=== PATIENT | female | born 1960 | race Caucasian/White ===

== ENCOUNTER 2016-11-21 15:41 | Emergency (ER) | payer MEDICARE, MEDICAID ==
[2016-11-21 15:52] VITALS: BP 109/68
--- NOTE | 2016-11-21 16:06 | EDM.PDOC ---
ED HPI GENERAL MEDICAL PROBLEM - General Chief Complaint: Headache Stated Complaint: BACK INJURY Time Seen by Provider: 11/21/16 16:06 Source of Information: Reports: Patient History Limitations: Reports: No Limitations - History of Present Illness INITIAL COMMENTS - FREE TEXT/NARRATIVE: Patient is a 56-year-old female with a history of narcotic use secondary to chronic back pain. Patient states today while walking outside of the school she tripped and fell hitting the left side of her head. Unknown if she was knocked out. She does complain of left-sided facial discomfort, midline cervical spine pain, and right-sided rib discomfort. There is a small abrasion to the left cheek and left eyebrow. Patient states she has a bad headache after the fall. She took a hydrocodone 1 and then 1 hour later took a hydromorphone 4 mg. Headache persists. She feels drowsy. She denies any vision changes, numbness or tingling, extremity discomfort, chest pain, shortness of breath, abdominal pain , or any additional complaints. Patient did walk into the ER on her own accord. Headache Pain Score (Numeric/FACES): 8 - Related Data Allergies Allergy/AdvReac Type Severity Reaction Status Date / Time chlorpromazine HCl Allergy Anxiety Verified 10/30/13 19:53 CDT [From Thorazine] codeine Allergy Hives Verified 10/30/13 19:53 CDT haloperidol [From Haldol] Allergy Anxiety Verified 10/30/13 19:53 CDT haloperidol lactate Allergy Anxiety Verified 10/30/13 19:53 CDT [From Haldol] morphine Allergy Itching Verified 10/30/13 19:53 CDT nalbuphine HCl [From Nubain] Allergy Hives Verified 10/30/13 19:53 CDT Home Meds: Home Meds Amitriptyline [Elavil] 2 tab PO DAILY 10/30/13 [History] Cyanocobalamin (Vitamin B-12) [Cyanocobalamin Injection] 1,000 mg INJECT ASDIRECTED 10/30/13 [History] Folic Acid/Multivit-Min/Lutein [Multi-Vitamin Gummies] 1 tab PO DAILY 10/30/13 [ History] HYDROmorphone [Dilaudid] 4 mg PO Q4H PRN 10/30/13 [History] Hydrocodone/Acetaminophen [Hydrocodon-Acetaminophn 10-325] 1 tab PO Q4H [History] Iron 1 tab PO DAILY 10/30/13 [History] Pantoprazole [Protonix] 40 mg PO DAILY 10/30/13 [History] Pregabalin [Lyrica] 150 mg PO BID 10/30/13 [History] Promethazine [Phenergan] 25 mg PO Q4H PRN 10/30/13 [History] SUMAtriptan Succinate [Imitrex] 1 tab PO ASDIRECTED PRN 10/30/13 [History] Past Medical History Respiratory History: Reports: Bronchitis, Recurrent Psychiatric History: Reports: Anxiety, Dementia - Past Surgical History GI Surgical History: Reports: Bariatric Procedure, Cholecystectomy Other GI Surgeries/Procedures: ulcers Female Surgical History: Reports: Hysterectomy Social & Family History - Tobacco Use Smoking Status *Q: Current Every Day Smoker Years of Tobacco use: 38 Packs/Tins Daily: 0.5 - Caffeine Use Caffeine Use: Reports: Soda - Alcohol Use Days Per Week of Alcohol Use: 0 - Recreational Drug Use Recreational Drug Use: No ED ROS GENERAL - Review of Systems Review Of Systems: See Below Constitutional: Reports: No Symptoms HEENT: Denies: Ear Pain, Eye Pain Respiratory: Reports: Pleuritic Chest Pain (right lateral/posterior chest). Denies: Shortness of Breath, Cough, Sputum Cardiovascular: Reports: Chest Pain. Denies: Dyspnea on Exertion, Lightheadedness, Palpitations, PND, Syncope GI/Abdominal: Denies: Abdominal Pain, Constipation, Diarrhea, Nausea, Vomiting Musculoskeletal: Reports: Neck Pain, Back Pain (right thoracic) Skin: Reports: Other (superficial abrasions to the left forehead, eyebrow, and cheek) Neurological: Reports: Headache. Denies: Dizziness, Numbness, Tingling, Difficulty Walking, Weakness - Physical Exam Exam: See Below Exam Limited By: Intoxication (Under the influence of narcotic medications) General Appearance: Alert, WD/WN, Lethargic Eye Exam: Bilateral Eye: EOMI, PERRL Ears: Normal External Exam, Hearing Grossly Normal Nose: Normal Inspection, Normal Mucosa, No Blood Throat/Mouth: Normal Inspection, Normal Lips, Normal Teeth, Normal Voice, No Airway Compromise Neck: Normal Inspection, Supple, Limited Range of Motion, Tender Midline Respiratory/Chest: No Respiratory Distress, Lungs Clear, Normal Breath Sounds, No Accessory Muscle Use, Chest Non-Tender Cardiovascular: Normal Peripheral Pulses, Regular Rate, Rhythm, No Murmur GI/Abdominal: Normal Bowel Sounds, Soft, Non-Tender, No Organomegaly, No Distention Neuro Exam (Abbreviated): Alert, Oriented, CN II-XII Intact, No Motor/Sensory Deficits, Slow to Respond, Other (Cerebellar function intact: Finger-nose, rapid alternating movements, [id number]. Equal sorority mother bilaterally. No strength discrepancies to the upper and lower extremity's. No facial droop, tongue deviation noted.) Back Exam: Normal Inspection, Full Range of Motion, Other (Pain located to the right lateral upper back with radiation along the lateral aspect of the ribs.). No: Paraspinal Tenderness, Vertebral Tenderness Extremities: Normal Inspection, Normal Range of Motion, Non-Tender, No Pedal Edema, Normal Capillary Refill Psychiatric: Normal Affect, Normal Mood Skin Exam: Warm, Dry, Intact, Normal Color Course - Vital Signs Last Recorded V/S: Last Vital Signs Temp 98.1 F 11/21/16 15:51 Pulse 63 11/21/16 15:51 Resp 20 11/21/16 15:51 BP 109/68 11/21/16 15:51 Pulse Ox 96 11/21/16 15:51 - Re-Assessments/Exams Free Text/Narrative Re-Assessment/Exam: Patient is under the influence of narcotic pain medications. She is unaware if she lost consciousness with the fall. She complains of left-sided head pain, midline cervical pain, and also right posterior and lateral rib discomfort. Will obtain a CT of the head without contrast, cervical spine without contrast, and rib x-ray with chest right side. We'll trend his basic labs to evaluate for any abnormalities including: CBC, chem 14, urine drug tox, EtOH, PTT/INR, PTT, and UA. 11/21/16 17:02 per nursing staff patient found out her mother is in the hospital and [place] and eats ago. No results of radiology studies present. No blood work obtained. Patient signed out AMA. No acute findings noted on head, cervical, and maxilofacial CT. CXR with rib series did not reveal bony abnormalities as well. Departure - Departure Time of Disposition: 16:51 Disposition: Against Medical Advice 07 Condition: Good Clinical Impression: Abrasion, Neck pain, LOC (loss of consciousness) Fall Qualifiers: Encounter type: initial encounter Qualified Code(s): W19.XXXA - Unspecified fall, initial encounter Contusion Qualifiers: Encounter type: initial encounter Contusion area: head Contusion of head detail : other part of head Qualified Code(s): S00.83XA - Contusion of other part of head, initial encounter - Discharge Information Forms: ED Department Discharge
--- NOTE | 2016-11-21 16:58 | CT ---
CT facial bones Technique: Multiple axial sections through the facial bones were obtained. Reconstructed coronal and sagittal images were reviewed. Findings: Retention cyst is noted within the right maxillary sinus measuring approximately 1.6 cm. Moderate amount of mucosal thickening is noted within the left maxillary sinus with possible air-fluid level. Mild mucosal thickening is seen within a portion of the left frontal and anterior left ethmoid sinuses. Right and left globes are symmetric. I do not appreciate a definite acute fracture. There is some joint space narrowing compatible with degenerative change within the temporomandibular joints on both sides. Impression: 1. No facial bone fracture is identified. 2. Sinus disease which is likely pre-existing and could represent acute on chronic sinusitis given the air-fluid level within the left maxillary sinus. Please correlate with the patient's symptoms. 3. Degenerative change within both temporomandibular joints. Diagnostic code #3
--- NOTE | 2016-11-21 17:00 | CT ---
Head CT Technique: Multiple axial sections through the brain were obtained. Intravenous contrast was not utilized. Comparison: No previous intracranial imaging. Findings: Slight soft tissue swelling is noted within the left posterior parietal scalp. Ventricles along with basal cisterns and sulci over the convexities are within normal limits for the patient's age. No abnormal parenchymal densities are seen. No evidence of intracranial hemorrhage. No midline shift or mass effect is seen. Bone window settings shows no acute calvarial abnormality. Sinus disease is noted as described on facial bone exam. Impression: 1. Sinus disease as described on facial bone exam. 2. No acute intracranial abnormality is appreciated. 3. Very slight soft tissue swelling noted within the posterior left parietal scalp. Diagnostic code #2
--- NOTE | 2016-11-21 17:02 | CT ---
CT cervical spine Technique: Multiple axial sections were obtained from above C1 inferiorly to the top of T3. Reconstructed sagittal and coronal images were reviewed. Comparison: No previous cervical spine imaging. Findings: Mastoid sinuses and middle ear cavities are clear. Posterior skull base is intact. Vertebral bodies and posterior arches are intact with no fracture being seen. No bony central or bony neural foraminal stenosis is seen. No abnormal subluxation is seen on the reconstructed sagittal images. Impression: 1. No abnormality is identified on CT study of the cervical spine. Diagnostic code #1
--- NOTE | 2016-11-22 07:17 | CR ---
Chest and right ribs: Frontal view of the chest was obtained as well as 3 views of the right ribs. Comparison: No previous chest or rib exam. Heart size and mediastinum are within normal limits. Left-sided infusion port is seen. Lungs are clear with no acute infiltrates. Surgical clips are seen within the upper abdomen. No discrete right-sided rib abnormality is appreciated. Impression: 1. No discrete right sided rib abnormality is appreciated. Nondisplaced fracture could be missed. 2. Nothing acute is seen on accompanying frontal chest x-ray. Diagnostic code #2
== END 2016-11-21 16:45 | disposition left against medical advice (07) ==
LOC: SUPCPDRO 15:41 → JD.ED 15:41
DX: S06.9X9A Unspecified intracranial injury with loss of consciousness of unspecified duration, initial encounter (principal); S00.83XA Contusion of other part of head, initial encounter; S10.91XA Abrasion of unspecified part of neck, initial encounter; F03.90 Unspecified dementia, unspecified severity, without behavioral disturbance, psychotic disturbance, mood disturbance, and anxiety; F41.9 Anxiety disorder, unspecified; F17.210 Nicotine dependence, cigarettes, uncomplicated; Z88.5 Allergy status to narcotic agent; Z88.8 Allergy status to other drugs, medicaments and biological substances; Z79.899 Other long term (current) drug therapy; Z98.84 Bariatric surgery status; Z90.49 Acquired absence of other specified parts of digestive tract; Z90.710 Acquired absence of both cervix and uterus; W01.0XXA Fall on same level from slipping, tripping and stumbling without subsequent striking against object, initial encounter
CPT/HCPCS: 70450; 70450-26; 70486; 70486-26; 71101-26-RT; 71101-RT; 72125; 72125-26; 99284; 99284-25

== ENCOUNTER 2017-05-14 18:20 | Emergency (ER) | payer MEDICARE, MEDICAID ==
[2017-05-14] MEDS ORDERED: Sodium Chloride 0.9% 10 ML Syringe FLUSH PRN (18:46)
[2017-05-14] MEDS ORDERED: HYDROmorphone 0.5 MG/0.5 ML SYRINGE IVPUSH ONE ×2 (18:49→20:42)
[2017-05-14] MEDS ORDERED: Sodium Chloride 0.9% 1,000 ML IV ONE (18:49)
[2017-05-14] MEDS ORDERED: Albuterol 0.083% 2.5 MG/3 ML Neb Soln NEB ONE (18:51)
[2017-05-14] MEDS ORDERED: Ondansetron 4 MG/2 ML SDV IVPUSH ONE (19:00)
--- NOTE | 2017-05-14 19:03 | EDM.PDOC ---
ED HPI GENERAL MEDICAL PROBLEM - General Chief Complaint: Chest Pain Stated Complaint: VOMITING,COUGHING,CHEST PAIN Time Seen by Provider: 05/14/17 18:37 Source of Information: Reports: Patient History Limitations: Reports: No Limitations - History of Present Illness INITIAL COMMENTS - FREE TEXT/NARRATIVE: Patient is a 56-year-old female who presents to the ED complaining of shortness of breath, cough, fever like symptoms, sinus congestion, runny nose, and periumbilical abdominal pain. Patient states symptoms started approximately 4 days ago and have progressively gotten worse over the course the day. She's been coughing up copious amounts of sputum. Has a difficult time sleeping at night secondary to the cough. In addition she has chronic abdominal discomfort and is on pain medications as well as GERD medications. She states as of recent she is developing some increasing pain to her abdomen. She is nauseated with 2 episodes of emesis prior to arrival. She has a history of small bowel obstructions. There is no documented fever although she's felt warm to touch. She has generalized body aches and admits she did not receive the flu vaccination since she gets sick from it. She is a heavy smoker. In addition complains of some mild chest discomfort with coughing and taking a deep breath. She has no history of DVT or PE. Denies any hemoptysis. Pain is reproducible with palpation. Patient denies being recently hospitalized or on any antibiotic within the last 90 days. Chest Pain Score (Numeric/FACES): 8 - Related Data Allergies Allergy/AdvReac Type Severity Reaction Status Date / Time chlorpromazine HCl Allergy Anxiety Verified 05/14/17 18:31 [From Thorazine] codeine Allergy Hives Verified 05/14/17 18:31 haloperidol [From Haldol] Allergy Anxiety Verified 05/14/17 18:31 haloperidol lactate Allergy Anxiety Verified 05/14/17 18:31 [From Haldol] morphine Allergy Itching Verified 05/14/17 18:31 nalbuphine HCl [From Nubain] Allergy Hives Verified 05/14/17 18:31 Home Meds: Home Meds Amitriptyline [Elavil] 2 tab PO DAILY 10/30/13 [History] Cyanocobalamin (Vitamin B-12) [Cyanocobalamin Injection] 1,000 mg INJECT ASDIRECTED 10/30/13 [History] Folic Acid/Multivit-Min/Lutein [Multi-Vitamin Gummies] 1 tab PO DAILY 10/30/13 [ History] HYDROmorphone [Dilaudid] 4 mg PO Q4H PRN 10/30/13 [History] Hydrocodone/Acetaminophen [Hydrocodon-Acetaminophn 10-325] 1 tab PO Q4H [History] Iron 1 tab PO DAILY 10/30/13 [History] Pantoprazole [ProTONIX] 40 mg PO DAILY 10/30/13 [History] Pregabalin [Lyrica] 150 mg PO BID 10/30/13 [History] Promethazine [Phenergan] 25 mg PO Q4H PRN 10/30/13 [History] SUMAtriptan Succinate [Imitrex] 1 tab PO ASDIRECTED PRN 10/30/13 [History] Amoxicillin/Clavulanate K [Augmentin XR 1000-62.5 MG] 2 tab PO Q12H 7 Days tab.er 05/15/17 [Rx] Azithromycin [IJD: Azithromycin] 250 mg PO QAM #4 tab 05/15/17 [Rx] guaiFENesin [Mucinex] 600 mg PO BID #20 tab.er.12h 05/15/17 [Rx] Past Medical History Respiratory History: Reports: Bronchitis, Recurrent Psychiatric History: Reports: Anxiety, Dementia - Past Surgical History GI Surgical History: Reports: Bariatric Procedure, Cholecystectomy Other GI Surgeries/Procedures: ulcers Female Surgical History: Reports: Hysterectomy Social & Family History - Tobacco Use Smoking Status *Q: Current Every Day Smoker Years of Tobacco use: 38 Packs/Tins Daily: 0.5 - Caffeine Use Caffeine Use: Reports: Soda - Alcohol Use Days Per Week of Alcohol Use: 0 - Recreational Drug Use Recreational Drug Use: No ED ROS GENERAL - Review of Systems Review Of Systems: See Below Constitutional: Reports: Fever, Chills, Malaise, Weakness, Decreased Appetite HEENT: Reports: No Symptoms Respiratory: Reports: Shortness of Breath, Wheezing, Pleuritic Chest Pain, Cough , Sputum. Denies: Hemoptysis Cardiovascular: Denies: Chest Pain, Dyspnea on Exertion, Lightheadedness, Palpitations, Syncope GI/Abdominal: Reports: Abdominal Pain, Anorexia, Constipation, Decreased Appetite, Nausea, Vomiting. Denies: Black Stool, Diarrhea, Hematemesis : Reports: No Symptoms Musculoskeletal: Reports: Muscle Pain (Generalized) Skin: Reports: No Symptoms Neurological: Reports: No Symptoms ED EXAM, GENERAL - Physical Exam Exam: See Below Exam Limited By: No Limitations General Appearance: Alert, Mild Distress, Cachetic Eye Exam: Bilateral Eye: PERRL Ears: Hearing Grossly Normal Nose: Normal Inspection Throat/Mouth: Normal Inspection, Normal Oropharynx, Normal Voice, No Airway Compromise Head: Atraumatic, Normocephalic Neck: Normal Inspection, Supple, Non-Tender, Full Range of Motion Respiratory/Chest: No Respiratory Distress, Normal Breath Sounds, No Accessory Muscle Use, Rhonchi (Throughout all lung [place]), Prolonged Expiration, Other ( Port-A-Cath the left anterior chest. Anterior chest is tender with palpation. She also has some pain to the right upper back worse with palpation as well. No bony abnormalities noted. No swelling, ecchymosis, or rash present.). No: Decreased Breath Sounds, Accessory Muscle Use Cardiovascular: Normal Peripheral Pulses, Regular Rate, Rhythm, No Murmur Peripheral Pulses: 3+: Radial (L), Radial (R) GI/Abdominal: Soft, No Organomegaly, Tender (Periumbilical region increased with palpation), Abnormal Bowel Sounds (Hyperactive) Back Exam: Normal Inspection. No: CVA Tenderness (L), CVA Tenderness (R) Extremities: Normal Inspection, Normal Range of Motion, Non-Tender, No Pedal Edema, Normal Capillary Refill Neurological: Alert, Oriented, CN II-XII Intact, Normal Cognition, No Motor/ Sensory Deficits Psychiatric: Normal Affect, Normal Mood Skin Exam: Warm, Dry, Intact, Normal Color, No Rash Course - Vital Signs Last Recorded V/S: Last Vital Signs Temp 100.6 F 05/15/17 01:54 Pulse 98 05/15/17 01:54 Resp 22 H 05/15/17 01:54 BP 112/62 05/15/17 01:54 Pulse Ox 97 05/15/17 01:54 - Orders/Labs/Meds Labs: Laboratory Tests 05/14/17 05/14/17 05/14/17 Range/Units 19:30 19:30 21:03 WBC 6.44 (3.98-10.04) K/mm3 RBC 4.19 (3.98-5.22) M/mm3 Hgb 11.4 (11.2-15.7) gm/L Hct 35.4 (34.1-44.9) % MCV 84.5 (79.4-94.8) fl MCH 27.2 (25.6-32.2) pg MCHC 32.2 (32.2-35.5) g/dl RDW Std Deviation 53.3 H (36.4-46.3) fL Plt Count 197 (182-369) K/mm3 MPV 10.3 (9.4-12.3) fl Neut % (Auto) 73.5 H (34.0-71.1) % Lymph % (Auto) 15.1 L (19.3-51.7) % [place] % (Auto) 10.2 (4.7-12.5) % Eos % (Auto) 0.8 (0.7-5.8) Baso % (Auto) 0.2 (0.1-1.2) % Neut # (Auto) 4.74 (1.56-6.13) K/mm3 Lymph # (Auto) 0.97 L (1.18-3.74) K/mm3 [place] # (Auto) 0.66 H (0.24-0.36) K/mm3 Eos # (Auto) 0.05 (0.04-0.36) K/mm3 Baso # (Auto) 0.01 (0.01-0.08) K/mm3 Sodium 140 (136-145) mEq/L Potassium 3.5 (3.5-5.1) mEq/L Chloride 106 (98-107) mEq/L Carbon Dioxide 24 (21-32) mEq/L Anion Gap 13.5 (5-15) BUN 9 (7-18) mg/dL Creatinine 0.6 (0.55-1.02) mg/dL Est Cr Clr Drug Dosing 81.93 mL/min Estimated GFR (MDRD) > 60 (>60) mL/min BUN/Creatinine Ratio 15.0 (14-18) Glucose 98 (74-106) mg/dL Calcium 8.4 L (8.5-10.1) mg/dL Total Bilirubin 0.4 (0.2-1.0) mg/dL AST 15 (15-37) U/L ALT 12 L (14-59) U/L Alkaline Phosphatase 113 (46-116) U/L Troponin I < 0.017 (0.00-0.056) ng/mL C-Reactive Protein 15.9 H* (<1.0) mg/dL Total Protein 6.1 L (6.4-8.2) g/dl Albumin 2.4 L (3.4-5.0) g/dl Globulin 3.7 gm/dL Albumin/Globulin Ratio 0.7 L (1-2) Lipase 58 L (73-393) U/L Urine Color Yellow (Yellow) Urine Appearance Clear (Clear) Urine pH 7.0 (5.0-8.0) Ur Specific [place] 1.020 (1.005-1.030) Urine Protein Negative (Negative) Urine Glucose (UA) Negative (Negative) Urine Ketones Trace H (Negative) Urine Occult Blood Negative (Negative) Urine Nitrite Negative (Negative) Urine Bilirubin Negative (Negative) Urine Urobilinogen 2.0 H (0.2-1.0) Ur Leukocyte Esterase Negative (Negative) Urine RBC 0-5 (0-5) /hpf Urine WBC 0-5 (0-5) /hpf Ur Epithelial Cells 0-5 (0-5) /hpf Urine Bacteria Few (FEW) /hpf Urine Mucus Few (FEW) /hpf Meds: Medications Discontinued Medications Generic Name Dose Route Start Last Admin Trade Name Greg PRN Reason Stop Dose Admin Albuterol 2.5 mg 05/14/17 18:51 05/14/17 19:40 Proventil Neb Soln NEB 05/14/17 18:52 2.5 mg ONETIME ONE Administration Azithromycin 500 mg 05/14/17 19:35 05/14/17 19:58 Zithromax PO 05/14/17 19:36 500 mg ONETIME ONE Administration Guaifenesin 1,200 mg 05/15/17 00:44 05/15/17 01:00 Mucinex PO 05/15/17 00:45 1,200 mg ONETIME ONE Administration Heparin Sodium (Porcine) 500 units 05/15/17 00:54 05/15/17 01:00 Heparin Lock Flush 100 Units/Ml FLUSH 05/15/17 00:55 500 units ASDIRECTED STA Administration Heparin Sodium (Porcine) Confirm 05/15/17 01:03 Heparin Lock Flush 100 Units/Ml Administered 05/15/17 01:04 Dose 500 units .ROUTE .STK-MED ONE Hydromorphone HCl 0.5 mg 05/14/17 18:49 05/14/17 19:23 Dilaudid IVPUSH 05/14/17 18:50 0.5 mg ONETIME ONE Administration Hydromorphone HCl 0.5 mg 05/14/17 20:42 05/14/17 20:53 Dilaudid IVPUSH 05/14/17 20:43 0.5 mg ONETIME ONE Administration Sodium Chloride 1,000 mls @ 500 mls/hr 05/14/17 18:49 05/14/17 19:22 Normal Saline IV 05/14/17 20:48 500 mls/hr ONETIME ONE Administration Ceftriaxone Sodium 1 gm/ 100 mls @ 200 mls/hr 05/14/17 19:34 05/14/17 19:57 Sodium Chloride IV 05/14/17 20:03 200 mls/hr ONETIME ONE Administration Ondansetron HCl 4 mg 05/14/17 19:00 05/14/17 19:22 Zofran IVPUSH 05/14/17 19:01 4 mg ONETIME ONE Administration Promethazine HCl 25 mg 05/14/17 20:41 05/14/17 20:53 Phenergan IM 05/14/17 20:42 25 mg ONETIME ONE Administration Sodium Chloride 10 ml 05/14/17 18:46 05/14/17 19:22 Saline Flush FLUSH 10 ml ASDIRECTED PRN Administration Keep Vein Open - Re-Assessments/Exams Free Text/Narrative Re-Assessment/Exam: IV established with normal saline 500 mls/hour, Dilaudid 0.5 mg IVP, and albuterol treatment. Initial labs and studies will include CBC, chem 14, CRP, influenza screen, lipase, troponin, UA, 2 view chest x-ray, two-view flat/Upright abdomen, and EKG. Chest x-ray reveals left lower lobe pneumonia. Flat and upright of the abdomen shows dilated bowel with copious amounts of stool. No free air present. Reviewed with Dr. Duncan suggested CT of the abdomen. This has been ordered. 05/14/17 20:01 EKG: Sinus rhythm with no acute ST changes noted. Due to patient's smoking history, recurring lung infections, and also cachectic appearance Will go ahead and order CT of the chest, abdomen, pelvis with IV and oral contrast. 05/14/17 20:28 Influenza screen was negative. 05/14/17 20:29 Labs reviewed: CBC essentially normal. Chemistry panel was essentially normal as well. Troponin less than 0.017. CRP 15.9. Lipase 58. 05/14/17 20:43 patient continues have some pain in her abdomen and chest with coughing and taking a deep breath. She is requesting something for pain and also nausea. Ordered Dilaudid 0.5 mg IVP, and also Phenergan 25 mg IM. UA negative for infection. I ordered initially CT the abdomen and pelvis with oral and IV contrast at 1928. Patient has had a difficult time in drinking the contrast. She has had no vomiting. Thus CT of the chest, abdomen, and pelvis have been delayed. I have ordered Mucinex 1200 mg by mouth. We'll discharge patient home with instructions as documented for community acquired pneumonia. Vital signs have been stable. She is not hypoxic. Will discharge patient home instructions as documented. Departure - Departure Time of Disposition: 00:48 Disposition: Home, Self-Care 01 Condition: Fair Clinical Impression: Community acquired pneumonia Qualifiers: Laterality: left Lung location: lower lobe of lung Qualified Code(s): J18.1 - Lobar pneumonia, unspecified organism - Discharge Information Prescriptions: Amoxicillin/Clavulanate K [Augmentin XR 1000-62.5 MG] 2 tab PO Q12H 7 Days tab.er Azithromycin [IJD: Azithromycin] 250 mg PO QAM #4 tab guaiFENesin [Mucinex] 600 mg PO BID #20 tab.er.12h Instructions: Nonspecific Chest Pain, [id number], Community-Acquired Pneumonia, Adult, Community-Acquired Pneumonia, Adult, [id number] Referrals: PCP,None [Primary Care Provider] - Forms: ED Department Discharge Additional Instructions: You are pneumonia at the left lower lobe. Treatment will be Augmentin 2000 mg twice a day for 7 days, azithromycin 250 mg for the next 4 days, Mucinex 600 mg twice a day until until cough improves. Continue taking all your home medications as prescribed. This includes all your pain medications. Take MiraLAX one capful every day with copious amounts of water or juice. Stop smoking. Take a [id number] probiotic. In the next 2 weeks. Push the fluids. Ensure adequate rest. Follow-up with your primary care provider this Sunday for reevaluation to ensure symptoms are improving. Return to the ED if you develop any new or worsening symptoms.
[2017-05-14] MEDS ORDERED: cefTRIAXone 1 GM in Sodium Chloride 0.9% 100 ML IV ONE (19:34)
[2017-05-14] MEDS ORDERED: Azithromycin 250 MG Tab PO ONE (19:35)
[2017-05-14] MEDS ORDERED: Promethazine 25 MG/ML SDV IM ONE (20:41)
[2017-05-15] MEDS ORDERED: guaiFENesin 600 MG Tab.ER PO ONE (00:44)
[2017-05-15 01:57] VITALS: BP 112/62
--- NOTE | 2017-05-15 07:22 | CR ---
Chest: Two views of the chest were obtained. Comparison: Prior chest x-ray of 11/21/16. Parenchymal density is seen within the left base. Left upper and right lung are clear. Heart size and mediastinum are normal. Left-sided infusion port is seen. Mild scoliosis is noted. Impression: 1. Parenchymal density within the left lung base most likely representing pneumonia. 2. Other incidental findings. Diagnostic code #3
--- NOTE | 2017-05-15 07:22 | CR ---
Abdomen: Supine and upright views of the abdomen were obtained. Comparison: Prior abdominal x-ray of 08/11/11. Bowel gas pattern appears within normal limits. Dystrophic calcifications are seen within the right buttock. Parenchymal density is noted within the left base having the appearance of pneumonia. Surgical clips are seen within the upper abdomen as well as anastomotic sutures. Minimal scoliosis is noted within the spine. No free air is seen. Impression: 1. Parenchymal density within the left lung base most likely representing pneumonia. 2. Other incidental findings. Diagnostic code #3
--- NOTE | 2017-05-15 07:31 | CT ---
CT chest Technique: Multiple axial sections were obtained from above the lung apices inferiorly through the lung bases. Intravenous contrast was utilized. Comparison: Prior chest x-ray performed on 05/14/17 (6:54 PM). No prior chest CT. Findings: Mild atherosclerotic calcification within the thoracic aorta is seen. No aneurysm is identified. Small lymph nodes seen within the mediastinum which are felt to be within normal limits. No axillary adenopathy is seen. Infusion port seen on the left side. No pericardial thickening is seen. Parenchymal density noted within the lingula and within the left lower lung. Lungs otherwise are clear. Bone window settings were reviewed which appear within normal limits for the patient's age. Impression: 1. Parenchymal density within the lingula and left lower lung most likely representing pneumonia. 2. Other incidental findings. Diagnostic code #3 Agree with preliminary report issued by [facility] ([employer] preliminary report dictated on 05/15/17, 1:32 AM Central Time) CT abdomen and pelvis Technique: Multiple axial sections were obtained from above the dome of the diaphragm inferiorly through the pubic symphysis. Intravenous and oral contrast was utilized. Comparison: No prior CT abdomen or pelvis exam, previous abdominal x-ray of 05/14/17 (6:55 PM). Limitations: Artifact noted from respiratory motion. Findings: Minimal intrahepatic biliary duct dilatation is seen. Surgical clips are seen from prior cholecystectomy. Liver shows no focal parenchymal abnormality. Spleen appears within normal limits. Adrenal glands show no nodule. Kidneys show symmetric contrast enhancement without hydronephrosis. No discrete renal abnormality is seen. Pancreas is atrophied. Aorta shows no aneurysmal dilatation. No retroperitoneal adenopathy is seen. Incidental dystrophic calcification is seen within both buttocks. No mesenteric abnormalities are seen. No pelvic mass or adenopathy is seen. Increased stool noted throughout colon. Previous gastric surgery is noted. Bone window settings were reviewed which appear within normal limits for the patient's age. Delayed images show contrast excretion into both ureters and bladder. Impression: 1. Minimal intrahepatic biliary duct dilatation felt to be residual from prior cholecystectomy. 2. Mild increased stool within the colon. 3. Other incidental findings. Diagnostic code #2 I agree with preliminary report issued by [facility] ([employer] preliminary report dictated on 05/15/17, 1:34 AM Central Time)
== END 2017-05-15 01:18 | disposition home or self-care (01) ==
LOC: JD.ED 18:20
DX: J18.9 Pneumonia, unspecified organism (principal); F17.210 Nicotine dependence, cigarettes, uncomplicated; Z88.5 Allergy status to narcotic agent; Z88.8 Allergy status to other drugs, medicaments and biological substances; Z79.899 Other long term (current) drug therapy
CPT/HCPCS: 36415; 71046; 71260; 74019; 74177; 80053; 81001; 83690; 84484; 85025; 86140; 87804; 93005; 94640; 96361; 96365; 96372; 96375; 96376; 99285; A9270; J0696; J1170; J1642; J2405; J2550; J7030; J7040; J7050; 99284

== ENCOUNTER 2017-08-01 16:46 | Emergency (ER) | payer MEDICARE, MEDICAID ==
[2017-08-01 17:04] VITALS: BP 124/58
[2017-08-01] MEDS ORDERED: HYDROmorphone 0.5 MG/0.5 ML SYRINGE IVPUSH ONE ×2 (17:26→19:23)
[2017-08-01] MEDS ORDERED: Famotidine 20 MG/2 ML SDV IVPUSH ONE (17:26)
[2017-08-01] MEDS ORDERED: Ondansetron 4 MG/2 ML SDV IVPUSH ONE (17:26)
[2017-08-01] MEDS ORDERED: Sodium Chloride 0.9% 10 ML Syringe FLUSH PRN (17:26)
[2017-08-01] MEDS ORDERED: Sodium Chloride 0.9% 1,000 ML IV SCH (17:30)
[2017-08-01] MEDS: Ketorolac 30 MG/ML SDV IVPUSH ONE ×2 (19:03)
[2017-08-01] MEDS ORDERED: Magnesium Citrate Solution 296 ML Bottle PO ONE (20:13)
--- NOTE | 2017-08-01 20:15 | EDM.PDOC ---
ED HPI GENERAL MEDICAL PROBLEM - General Chief Complaint: Abdominal Pain Stated Complaint: THROWING UP Time Seen by Provider: 08/01/17 17:19 Source of Information: Reports: Patient, RN Notes Reviewed - History of Present Illness INITIAL COMMENTS - FREE TEXT/NARRATIVE: 57 year old female with severe upper mid abd pain, started last evening, has had N/vomiting. No diarrhea. Has had 2 BM's earlier today. No fever. occasional chills. No chest pain or difficulty breathing. Middle Abdomen Pain Score (Numeric/FACES): 8 - Related Data Allergies Allergy/AdvReac Type Severity Reaction Status Date / Time codeine Allergy Hives Verified 08/01/17 17:04 ketorolac [From Toradol] Allergy Blisters Verified 08/01/17 19:04 morphine Allergy Itching Verified 08/01/17 17:04 nalbuphine HCl [From Nubain] Allergy Hives Verified 08/01/17 17:04 chlorpromazine HCl AdvReac Anxiety Verified 08/01/17 17:04 [From Thorazine] haloperidol [From Haldol] AdvReac Anxiety Verified 08/01/17 17:04 haloperidol lactate AdvReac Anxiety Verified 08/01/17 17:04 [From Haldol] Home Meds: Home Meds Amitriptyline [Elavil] 2 tab PO DAILY 10/30/13 [History] Cyanocobalamin (Vitamin B-12) [Cyanocobalamin Injection] 1,000 mg INJECT ASDIRECTED 10/30/13 [History] Folic Acid/Multivit-Min/Lutein [Multi-Vitamin Gummies] 1 tab PO DAILY 10/30/13 [ History] HYDROmorphone [Dilaudid] 4 mg PO Q4H PRN 10/30/13 [History] Hydrocodone/Acetaminophen [Hydrocodon-Acetaminophn 10-325] 1 tab PO Q4H [History] Iron 1 tab PO DAILY 10/30/13 [History] Pantoprazole [ProTONIX] 40 mg PO DAILY 10/30/13 [History] Pregabalin [Lyrica] 150 mg PO BID 10/30/13 [History] Promethazine [Phenergan] 25 mg PO Q4H PRN 10/30/13 [History] SUMAtriptan Succinate [Imitrex] 1 tab PO ASDIRECTED PRN 10/30/13 [History] Amoxicillin/Clavulanate K [Augmentin XR 1000-62.5 MG] 2 tab PO Q12H 7 Days tab.er 05/15/17 [Rx] Azithromycin [IJD: Azithromycin] 250 mg PO QAM #4 tab 05/15/17 [Rx] guaiFENesin [Mucinex] 600 mg PO BID #20 tab.er.12h 05/15/17 [Rx] Past Medical History Respiratory History: Reports: Bronchitis, Recurrent Gastrointestinal History: Reports: Bowel Obstruction GRADES 7 AND [employer] History: Reports: Psychiatric History: Reports: Anxiety, Dementia - Past Surgical History GI Surgical History: Reports: Bariatric Procedure, Cholecystectomy Other GI Surgeries/Procedures: ulcers Female Surgical History: Reports: Hysterectomy Social & Family History - Family History Family Medical History: Noncontributory - Tobacco Use Smoking Status *Q: Current Every Day Smoker Years of Tobacco use: 20 Packs/Tins Daily: 0.3 Used Tobacco, but Quit: No Second Hand Smoke Exposure: No - Caffeine Use Caffeine Use: Reports: Soda - Recreational Drug Use Recreational Drug Use: No ED ROS GENERAL - Review of Systems Review Of Systems: See Below Constitutional: Reports: Chills. Denies: Fever HEENT: Denies: Sinus Problem, Throat Pain Respiratory: Denies: Shortness of Breath, Pleuritic Chest Pain Cardiovascular: Denies: Chest Pain GI/Abdominal: Reports: Abdominal Pain, Nausea, Vomiting. Denies: Constipation, Diarrhea Musculoskeletal: Denies: Shoulder Pain, Back Pain Skin: Reports: No Symptoms Neurological: Reports: No Symptoms ED EXAM, GI/ABD - Physical Exam Exam: See Below General Appearance: Alert, Mild Distress Eyes: Bilateral: Normal Appearance Throat/Mouth: Normal Inspection Head: Atraumatic Neck: Supple, Full Range of Motion Respiratory/Chest: No Respiratory Distress, Lungs Clear, Normal Breath Sounds Cardiovascular: Regular Rate, Rhythm GI/Abdominal Exam: Tender (upper mid abd, lower abd nontender). No: Guarding, Rebound Back Exam: No: CVA Tenderness (L), CVA Tenderness (R) Extremities: Normal Inspection, Normal Range of Motion Neurological: Alert, No Motor/Sensory Deficits Skin Exam: Warm, Dry, Normal Color Course - Vital Signs Last Recorded V/S: Last Vital Signs Temp 97.3 F 08/01/17 17:01 Pulse 98 05/16/18 17:01 Resp 18 08/01/17 17:01 BP 124/58 L 08/01/17 17:01 Pulse Ox 95 08/01/17 17:01 - Orders/Labs/Meds Orders: Active Orders 24 hr Category Date Time Status Peripheral IV Care [RC] . DIRECTED Care 08/01/17 17:26 Active Abdomen 2V AP Flat Upright [CR] Stat Exams 08/01/17 17:28 Taken Sodium Chloride 0.9% [Normal Saline] 1,000 ml Med 08/01/17 17:30 Active IV ONETIME Sodium Chloride 0.9% [Saline Flush] Med 08/01/17 17:26 Active 10 ml FLUSH ASDIRECTED PRN Peripheral IV Insertion Adult [OM.PC] Stat Oth 08/01/17 17:26 Ordered Medication Orders Sodium Chloride (Normal Saline) 1,000 mls @ 999 mls/hr IV ONETIME JOSEFA Last Admin: 08/01/17 18:10 Dose: 999 mls/hr Sodium Chloride (Saline Flush) 10 ml FLUSH ASDIRECTED PRN PRN Reason: Keep Vein Open Last Admin: 08/01/17 18:11 Dose: 10 ml Labs: Laboratory Tests 08/01/17 08/01/17 08/01/17 Range/Units 18:03 18:03 18:03 WBC 5.79 (3.98-10.04) K/mm3 RBC 4.21 (3.98-5.22) M/mm3 Hgb 11.8 (11.2-15.7) gm/L Hct 36.1 (34.1-44.9) % MCV 85.7 (79.4-94.8) fl MCH 28.0 (25.6-32.2) pg MCHC 32.7 (32.2-35.5) g/dl RDW Std Deviation 48.0 H (36.4-46.3) fL Plt Count 257 (182-369) K/mm3 MPV 9.4 (9.4-12.3) fl Neut % (Auto) 72.5 H (34.0-71.1) % Lymph % (Auto) 18.8 L (19.3-51.7) % [place] % (Auto) 7.8 (4.7-12.5) % Eos % (Auto) 0.7 (0.7-5.8) Baso % (Auto) 0.2 (0.1-1.2) % Neut # (Auto) 4.20 (1.56-6.13) K/mm3 Lymph # (Auto) 1.09 L (1.18-3.74) K/mm3 [place] # (Auto) 0.45 H (0.24-0.36) K/mm3 Eos # (Auto) 0.04 (0.04-0.36) K/mm3 Baso # (Auto) 0.01 (0.01-0.08) K/mm3 Sodium 143 (136-145) mEq/L Potassium 3.8 (3.5-5.1) mEq/L Chloride 109 H (98-107) mEq/L Carbon Dioxide 24 (21-32) mEq/L Anion Gap 13.8 (5-15) BUN 11 (7-18) mg/dL Creatinine 0.6 (0.55-1.02) mg/dL Est Cr Clr Drug Dosing 79.00 mL/min Estimated GFR (MDRD) > 60 (>60) mL/min BUN/Creatinine Ratio 18.3 H (14-18) Glucose 93 (74-106) mg/dL Calcium 8.2 L (8.5-10.1) mg/dL Total Bilirubin 0.2 (0.2-1.0) mg/dL AST 21 (15-37) U/L ALT 19 (14-59) U/L Alkaline Phosphatase 97 (46-116) U/L Total Protein 6.1 L (6.4-8.2) g/dl Albumin 2.8 L (3.4-5.0) g/dl Globulin 3.3 gm/dL Albumin/Globulin Ratio 0.9 L (1-2) Lipase 99 (73-393) U/L Meds: Medications Generic Name Dose Route Start Last Admin Trade Name Freq PRN Reason Stop Dose Admin Sodium Chloride 1,000 mls @ 999 mls/hr 08/01/17 17:30 08/01/17 18:10 Normal Saline IV 999 mls/hr ONETIME JOSEFA Administration Sodium Chloride 10 ml 08/01/17 17:26 08/01/17 18:11 Saline Flush FLUSH 10 ml ASDIRECTED PRN Administration Keep Vein Open Discontinued Medications Generic Name Dose Route Start Last Admin Trade Name Greg PRN Reason Stop Dose Admin Famotidine 20 mg 08/01/17 17:26 08/01/17 18:07 Pepcid IVPUSH 08/01/17 17:27 20 mg ONETIME ONE Administration Hydromorphone HCl 0.5 mg 08/01/17 17:26 08/01/17 17:57 Dilaudid IVPUSH 08/01/17 17:27 0.5 mg ONETIME ONE Administration Hydromorphone HCl 0.5 mg 08/01/17 19:23 08/01/17 19:33 Dilaudid IVPUSH 08/01/17 19:24 0.5 mg ONETIME ONE Administration Ketorolac Tromethamine 30 mg 08/01/17 18:42 08/01/17 19:03 Toradol IVPUSH 08/01/17 18:43 Not Given ONETIME ONE Magnesium Citrate 296 ml 08/01/17 20:13 Citrate Of Magnesia PO 08/01/17 20:14 ONETIME ONE Ondansetron HCl 4 mg 08/01/17 17:26 08/01/17 18:02 Zofran IVPUSH 08/01/17 17:27 4 mg ONETIME ONE Administration - Re-Assessments/Exams Free Text/Narrative Re-Assessment/Exam: 08/01/17 20:20 labs are nl, flat and upright shows increased stool in colon, feels better after IV fluid and meds. Departure - Departure Time of Disposition: 20:12 Disposition: Home, Self-Care 01 Condition: Fair Clinical Impression: Abdominal pain Qualifiers: Abdominal location: upper abdomen, unspecified Qualified Code(s): R10.10 - Upper abdominal pain, unspecified Vomiting Qualifiers: Vomiting type: unspecified Vomiting Intractability: non-intractable Nausea presence: with nausea Qualified Code(s): R11.2 - Nausea with vomiting, unspecified Constipation Qualifiers: Constipation type: unspecified constipation type Qualified Code(s): K59.00 - Constipation, unspecified - Discharge Information Instructions: Abdominal Pain, Adult, [id number], Nausea and Vomiting, Adult Referrals: PCP,None [Primary Care Provider] - Forms: ED Department Discharge Additional Instructions: clear liquids until tomororow afternoon, than careful bland diet as tolerated, 1/2 bottle mag citrate tonight, drink remainder tomorrow morning if no further BM by than. Follow up clinic if not back to normal by Sunday, return to ED if symptoms worsening in any way. - My Orders Last 24 Hours: My Active Orders 08/01/17 17:26 Peripheral IV Care [RC] . DIRECTED Sodium Chloride 0.9% [Saline Flush] 10 ml FLUSH ASDIRECTED PRN Peripheral IV Insertion Adult [OM.PC] Stat 08/01/17 17:28 Abdomen 2V AP Flat Upright [CR] Stat 08/01/17 17:30 Sodium Chloride 0.9% [Normal Saline] 1,000 ml IV ONETIME - Assessment/Plan Last 24 Hours: My Active Orders 08/01/17 17:26 Peripheral IV Care [RC] . DIRECTED Sodium Chloride 0.9% [Saline Flush] 10 ml FLUSH ASDIRECTED PRN Peripheral IV Insertion Adult [OM.PC] Stat 08/01/17 17:28 Abdomen 2V AP Flat Upright [CR] Stat 08/01/17 17:30 Sodium Chloride 0.9% [Normal Saline] 1,000 ml IV ONETIME
--- NOTE | 2017-08-02 07:07 | CR ---
Abdomen: Supine view of the abdomen was obtained. Comparison: Prior abdominal x-ray of 05/14/17. Slight increased density overlying the colon is seen most likely due to small amount of residual contrast. Gas noted within small bowel and colon which appears nondilated and is felt to be incidental. Surgical clips are seen within the upper right and left abdomen as well as surgical anastomotic sutures within the left upper abdomen. Calcifications are identified within the pelvis which are felt compatible with phleboliths. No discrete soft tissue abnormality is seen. No free air is seen. Impression: 1. Incidental findings. Nothing acute is seen on two-view abdominal x-ray. Diagnostic code #2
== END 2017-08-01 20:26 | disposition home or self-care (01) ==
LOC: JD.ED 16:46
DX: K59.00 Constipation, unspecified (principal); R10.10 Upper abdominal pain, unspecified; R11.2 Nausea with vomiting, unspecified; F17.210 Nicotine dependence, cigarettes, uncomplicated; Z88.5 Allergy status to narcotic agent; Z88.8 Allergy status to other drugs, medicaments and biological substances; Z79.899 Other long term (current) drug therapy
CPT/HCPCS: 36415; 74019; 80053; 83690; 85025; 96361; 96374; 96375; 96376; 99284; A9270; J1170; J1642; J2405; J7040; J7050; 99283; J1885

== ENCOUNTER 2017-08-21 18:50 | Inpatient (IN) | payer MEDICARE, MEDICAID ==
--- NOTE | 2017-08-21 19:18 | EDM.PDOC ---
ED HPI GENERAL MEDICAL PROBLEM - General Chief Complaint: Respiratory Problem Stated Complaint: COUGH CONGESTION SOB Time Seen by Provider: 08/21/17 19:22 Source of Information: Reports: Patient History Limitations: Reports: No Limitations - History of Present Illness INITIAL COMMENTS - FREE TEXT/NARRATIVE: 57-year-old female presents to the ED with a 3 day history of fever chills generalized myalgia and headache. Partial paroxysmal cough that is productive of greenish thick sputum without blood. Patient remains a smoker half pack to pack per day. She appreciates that she is wheezing more than normal. Appetite went out the window yesterday. She hasn't eaten at much at all for the last 36 hours. She's cold and chilled. At time of examination she was very chilled. She is febrile first to deep breathe with pleuritic pain on the left side. She has had pneumonia on multiple occasions. Patient was hospitalized in April of this year with left lower lobar and lingular pneumonia. Patient is a left upper anterior chest Port-A-Cath. This was placed due to venous access issues. Patient has nothing but problems since she had gastric bypass surgery. Onset: Sudden Onset Date: 08/18/17 Duration: Day(s): Location: Reports: Chest (Generalized myalgia with headache and body aches. [place] IV productive cough with pleuritic left-sided chest pain.), Generalized, Other (Severely decreased appetite) Quality: Reports: Same as Previous Episode (She states she's been septic twice in the past due to) Severity: Severe (pneumonia.) Improves with: Reports: None (Thank you down Tylenol for pain meds today. She did take some children's Tylenol which she thinks might of his stay down.) Worsens with: Reports: Other, Movement Context: Denies: Activity (Deep breathing.), Exercise, Lifting, Sick Contact, Trauma, Other Associated Symptoms: Reports: Chest Pain (Left-sided pleuritic chest pain), Cough, cough w sputum, Fever/Chills, Headaches, Loss of Appetite, Malaise, Nausea/Vomiting, Shortness of Breath, Weakness (Started yesterday. Lysed weakness). 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 Generalized Pain Score (Numeric/FACES): 9 - Related Data Allergies Allergy/AdvReac Type Severity Reaction Status Date / Time codeine Allergy Hives Verified 08/21/17 19:02 ketorolac [From Toradol] Allergy Blisters Verified 08/21/17 19:02 morphine Allergy Itching Verified 08/21/17 19:02 nalbuphine HCl [From Nubain] Allergy Hives Verified 08/21/17 19:02 chlorpromazine HCl AdvReac Anxiety Verified 08/21/17 19:02 [From Thorazine] haloperidol [From Haldol] AdvReac Anxiety Verified 08/21/17 19:02 haloperidol lactate AdvReac Anxiety Verified 08/21/17 19:02 [From Haldol] Home Meds: Home Meds Amitriptyline [Elavil] 2 tab PO DAILY 10/30/13 [History] Cyanocobalamin (Vitamin B-12) [Cyanocobalamin Injection] 1,000 mg INJECT ASDIRECTED 10/30/13 [History] Folic Acid/Multivit-Min/Lutein [Multi-Vitamin Gummies] 1 tab PO DAILY 10/30/13 [ History] HYDROmorphone [Dilaudid] 4 mg PO Q4H PRN 10/30/13 [History] Hydrocodone/Acetaminophen [Hydrocodon-Acetaminophn 10-325] 1 tab PO Q4H [History] Iron 1 tab PO DAILY 10/30/13 [History] Pantoprazole [ProTONIX] 40 mg PO DAILY 10/30/13 [History] Pregabalin [Lyrica] 150 mg PO BID 10/30/13 [History] Promethazine [Phenergan] 25 mg PO Q4H PRN 10/30/13 [History] SUMAtriptan Succinate [Imitrex] 1 tab PO ASDIRECTED PRN 10/30/13 [History] Albuterol/Ipratropium [DuoNeb 3.0-0.5 MG/3 ML] 3 ml INH Q4H PRN 08/21/17 [ History] Past Medical History HEENT History: Reports: Impaired Vision Respiratory History: Reports: Bronchitis, Recurrent, COPD (20-[id number]-[id number] history) , Pneumonia, Recurrent Other Respiratory History: Patient has gone septic from pneumonia x2 Gastrointestinal History: Reports: Bowel Obstruction, Other (See Below) ( Gastric bypass surgery with multiple complications thereof. 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: Musculoskeletal History: Reports: Arthritis, Back Pain, Chronic, Fracture Psychiatric History: Reports: Anxiety - Past Surgical History GI Surgical History: Reports: Bariatric Procedure, Cholecystectomy Other GI Surgeries/Procedures: ulcers Female Surgical History: Reports: Hysterectomy Social & Family History - Family History Family Medical History: Noncontributory - Tobacco Use Smoking Status *Q: Current Every Day Smoker Years of Tobacco use: 37 Packs/Tins Daily: 0.3 - Caffeine Use Caffeine Use: Reports: Soda - Recreational Drug Use Recreational Drug Use: No - Living Situation & Occupation Living situation: Reports: Single Occupation: Disabled ED ROS GENERAL - Review of Systems Review Of Systems: See Below Constitutional: Reports: Fever, Chills, Malaise, Weakness, Fatigue, Decreased Appetite, Weight Loss, Other (Nausea and vomiting) HEENT: Reports: Other (Right ear hurts once in a while.) Respiratory: Reports: Shortness of Breath, Wheezing, Pleuritic Chest Pain, Cough , Sputum (Left side of chest with coughing.). Denies: Hemoptysis ( Dark green sputum) Cardiovascular: Reports: Chest Pain (With coughing pleuritic component to the pain), Dyspnea on Exertion, Lightheadedness. Denies: Blood Pressure Problem, Claudication, Edema, Orthopnea, Palpitations (Chronically) Endocrine: Reports: Fatigue GI/Abdominal: Reports: Nausea, Vomiting (Started just today.). Denies: Abdominal Pain, Diarrhea : Reports: No Symptoms Musculoskeletal: Reports: Back Pain (Chronic back pain) Skin: Reports: No Symptoms Neurological: Reports: No Symptoms Psychiatric: Reports: Depression Hematologic/Lymphatic: Reports: Anemia Immunologic: Reports: No Symptoms ED EXAM, GENERAL - Physical Exam Exam: See Below Exam Limited By: No Limitations General Appearance: Alert, WD/WN, Moderate Distress (She appears quite ill. She is moderately warm to palpation. Vital signs show temperature 37.9. 97% on room air.), Other (Appears ill.) Eye Exam: Bilateral Eye: Normal Inspection (No jaundice.) Ears: Normal TMs, Other (There is some scarring on the right tympanic membrane.) Throat/Mouth: Normal Lips, Normal Teeth, Other (Your pharynx is mildly diffusely inflamed from cigarette smoking.) Head: Atraumatic, Normocephalic Neck: Normal Inspection, Supple, Non-Tender, Full Range of Motion. No: Carotid Bruit, Lymphadenopathy (L), Lymphadenopathy (R) Respiratory/Chest: No Accessory Muscle Use, Chest Non-Tender, Rhonchi ( Throughout both lung [place] worse on the left upper lobe), Wheezing ( and posteriorly as well. scattered expiratory wheezes. ). No: Lungs Clear, Normal Breath Sounds Cardiovascular: Normal Peripheral Pulses, Regular Rate, Rhythm, No Edema, No Gallop, No Murmur Peripheral Pulses: 2+: Posterior Tibial (L), Posterior Tibial (R), Dorsalis Pedis (L), Dorsalis Pedis (R) GI/Abdominal: Normal Bowel Sounds, Soft, Non-Tender, Pelvis Stable, Tender ( Epigastrium right upper quadrant.) Back Exam: Normal Inspection, Full Range of Motion. No: CVA Tenderness (L), CVA Tenderness (R) Extremities: Normal Inspection, Normal Range of Motion, Non-Tender, No Pedal Edema Neurological: Alert, CN II-XII Intact, Normal Cognition, Normal Gait, No Motor/ Sensory Deficits Psychiatric: Flat Affect Skin Exam: Warm, Dry, Intact, Normal Color, No Rash EKG INTERPRETATION EKG Date: 08/21/17 Time: 19:55 Rhythm: NSR Rate (Beats/Min): 88 [place]: Normal P-Wave: Present QRS: Other (There are Q waves V1 and V2 and near Q-wave in V3 suggesting old anteroseptal myocardial infarction. There is decreased voltage in both limb and precordial leads.) ST-T: Normal QT: Normal EKG Interpretation Comments: Abnormal ECG Course - Vital Signs Last Recorded V/S: Last Vital Signs Temp 37.9 C 08/21/17 18:58 Pulse 96 08/21/17 18:58 Resp 20 08/21/17 18:58 BP 118/78 08/21/17 18:58 Pulse Ox 97 08/21/17 18:58 - Orders/Labs/Meds Orders: Active Orders 24 hr Category Date Time Status EKG Documentation Completion [RC] STAT Care 08/21/17 19:17 Active RT Aerosol Therapy [RC] ASDIRECTED Care 08/21/17 19:45 Active Chest 1V Frontal [CR] Stat Exams 08/21/17 19:17 Taken CULTURE BLOOD [BC] Stat Lab 08/21/17 19:30 Received CULTURE BLOOD [BC] Stat Lab 08/21/17 19:40 Received INFLUENZA A+B AG SCREEN [RM] Stat Lab 08/21/17 19:22 Ordered URINALYSIS W/MICROSCOPIC [UA W/MICROSCOPIC] [URIN] Stat Lab 08/21/17 21:20 Ordered Acetaminophen [Tylenol] Med 08/21/17 21:25 Once 650 mg PO NOW ONE Dextrose 5%-0.9% NaCl [Dextrose 5%-Normal Saline] 1,000 Med 08/21/17 19:30 Active ml IV ASDIRECTED Levofloxacin/Dextrose 5%-Water [Levaquin in D5W 750 MG/ Med 08/21/17 20:12 Active 150 ML] 750 mg Premix Bag 1 bag IV ONETIME Blood Culture x2 Reflex Set [OM.PC] Stat Oth 08/21/17 19:17 Ordered Medication Orders Dextrose/Sodium Chloride (Dextrose 5%-Normal Saline) 1,000 mls @ 500 mls/hr IV ASDIRECTED [facility] Last Admin: 08/21/17 19:44 Dose: 500 mls/hr Levofloxacin/Dextrose 750 mg/ (Premix) 150 mls @ 100 mls/hr IV ONETIME ONE Stop: 08/21/17 21:41 Last Admin: 08/21/17 20:57 Dose: 100 mls/hr Labs: Laboratory Tests 08/21/17 08/21/17 08/21/17 Range/Units 19:40 19:40 19:40 WBC 8.44 (3.98-10.04) K/mm3 RBC 4.18 (3.98-5.22) M/mm3 Hgb 11.4 (11.2-15.7) gm/L Hct 35.1 (34.1-44.9) % MCV 84.0 (79.4-94.8) fl MCH 27.3 (25.6-32.2) pg MCHC 32.5 (32.2-35.5) g/dl RDW Std Deviation 45.2 (36.4-46.3) fL Plt Count 271 (182-369) K/mm3 MPV 9.2 L (9.4-12.3) fl Neutrophils % (Manual) 79 H (40-60) % Band Neutrophils % 0 (0-10) % Lymphocytes % (Manual) 14 L (20-40) % Atypical Lymphs % 0 % Monocytes % (Manual) 7 (2-10) % Eosinophils % (Manual) 0 L (0.7-5.8) % Basophils % (Manual) 0 L (0.1-1.2) Platelet Estimate Adequate Plt Morphology Comment Normal Hypochromasia 1+ slight Poikilocytosis 1+ slight RBC Morph Comment Not Reportable Sodium 137 (136-145) mEq/L Potassium 3.8 (3.5-5.1) mEq/L Chloride 102 (98-107) mEq/L Carbon Dioxide 24 (21-32) mEq/L Anion Gap 14.8 (5-15) BUN 10 (7-18) mg/dL Creatinine 0.6 (0.55-1.02) mg/dL Est Cr Clr Drug Dosing 82.80 mL/min Estimated GFR (MDRD) > 60 (>60) mL/min BUN/Creatinine Ratio 16.7 (14-18) Glucose 84 (74-106) mg/dL Lactic Acid (0.4-2.0) mmol/L Calcium 8.3 L (8.5-10.1) mg/dL Magnesium (1.8-2.4) mg/dl Total Bilirubin 0.6 (0.2-1.0) mg/dL AST 17 (15-37) U/L ALT 18 (14-59) U/L Alkaline Phosphatase 118 H (46-116) U/L Troponin I < 0.017 (0.00-0.056) ng/mL C-Reactive Protein 9.5 H* (<1.0) mg/dL NT-Pro-B Natriuret Pep 137 H (0-125) pg/mL Total Protein 6.2 L (6.4-8.2) g/dl Albumin 2.6 L (3.4-5.0) g/dl Globulin 3.6 gm/dL Albumin/Globulin Ratio 0.7 L (1-2) Mycoplasma pneumon IgM (NEGATIVE) 08/21/17 08/21/17 08/21/17 Range/Units 19:40 19:40 19:40 WBC (3.98-10.04) K/mm3 RBC (3.98-5.22) M/mm3 Hgb (11.2-15.7) gm/L Hct (34.1-44.9) % MCV (79.4-94.8) fl MCH (25.6-32.2) pg MCHC (32.2-35.5) g/dl RDW Std Deviation (36.4-46.3) fL Plt Count (182-369) K/mm3 MPV (9.4-12.3) fl Neutrophils % (Manual) (40-60) % Band Neutrophils % (0-10) % Lymphocytes % (Manual) (20-40) % Atypical Lymphs % % Monocytes % (Manual) (2-10) % Eosinophils % (Manual) (0.7-5.8) % Basophils % (Manual) (0.1-1.2) Platelet Estimate Plt Morphology Comment Hypochromasia Poikilocytosis RBC Morph Comment Sodium (136-145) mEq/L Potassium (3.5-5.1) mEq/L Chloride (98-107) mEq/L Carbon Dioxide (21-32) mEq/L Anion Gap (5-15) BUN (7-18) mg/dL Creatinine (0.55-1.02) mg/dL Est Cr Clr Drug Dosing mL/min Estimated GFR (MDRD) (>60) mL/min BUN/Creatinine Ratio (14-18) Glucose (74-106) mg/dL Lactic Acid 0.9 (0.4-2.0) mmol/L Calcium (8.5-10.1) mg/dL Magnesium 2.0 (1.8-2.4) mg/dl Total Bilirubin (0.2-1.0) mg/dL AST (15-37) U/L ALT (14-59) U/L Alkaline Phosphatase (46-116) U/L Troponin I (0.00-0.056) ng/mL C-Reactive Protein (<1.0) mg/dL NT-Pro-B Natriuret Pep (0-125) pg/mL Total Protein (6.4-8.2) g/dl Albumin (3.4-5.0) g/dl Globulin gm/dL Albumin/Globulin Ratio (1-2) Mycoplasma pneumon IgM Negative (NEGATIVE) Meds: Medications Generic Name Dose Route Start Last Admin Trade Name Freq PRN Reason Stop Dose Admin Dextrose/Sodium Chloride 1,000 mls @ 500 mls/hr 08/21/17 19:30 08/21/17 19:44 Dextrose 5%-Normal Saline IV 500 mls/hr ASDIRECTED JOSEFA Administration Levofloxacin/Dextrose 750 mg/ 150 mls @ 100 mls/hr 08/21/17 20:12 08/21/17 20 :57 Premix IV 08/21/17 21:41 100 mls/hr ONETIME ONE Administration Discontinued Medications Generic Name Dose Route Start Last Admin Trade Name Greg PRN Reason Stop Dose Admin Albuterol/Ipratropium 3 ml 08/21/17 19:45 08/21/17 19:59 Duoneb 3.0-0.5 Mg/3 Ml NEB 08/21/17 19:46 3 ml ONETIME ONE Administration Hydromorphone HCl 0.5 mg 08/21/17 19:34 08/21/17 21:26 Dilaudid IVPUSH 08/21/17 19:35 Not Given ONETIME ONE Hydromorphone HCl 1 mg 08/21/17 19:35 08/21/17 19:49 Dilaudid IVPUSH 08/21/17 19:36 1 mg ONETIME ONE Administration Hydromorphone HCl 1 mg 08/21/17 20:40 08/21/17 20:55 Dilaudid IVPUSH 08/21/17 20:41 1 mg ONETIME ONE Administration Promethazine HCl 25 mg/ Sodium 51 mls @ 100 mls/hr 08/21/17 20:40 08/21/17 20 :56 Chloride IV 08/21/17 21:10 100 mls/hr ONETIME ONE Administration Ibuprofen 600 mg 08/21/17 19:45 08/21/17 19:52 Motrin PO 08/21/17 19:46 Not Given ONETIME ONE Ondansetron HCl 4 mg 08/21/17 19:30 08/21/17 19:47 Zofran IVPUSH 08/21/17 19:31 4 mg ONETIME ONE Administration - Radiology Interpretation Free Text/Narrative:: 57-year-old female with known mild COPD from his [id number] history of smoking presents to the ED with a three-day history of fever chills loss of appetite headache and generalized myalgia and productive cough. She's had pneumonia several times in the past. Sputum she reports started green in color. She has pleuritic pain in her left chest with deep breathing and coughing. No hemoptysis. Started vomiting yesterday and has not had much in the way of solids or fluids today. Even her pain medications won't stay down. She did take some liquid Tylenol which she believes didn't stay down for a period of time. At present she is splinting quite significant chills with no rigors. Plan: influenza screen. IV will be D5 normal saline at 500 mils per hour. Will give Tylenol 650 mg orally 20 minutes after the Zofran is administered. She will have complete septic workup carried out including lactic acid blood cultures 2 etc. She likely will require admission to hospital for IV antibiotic therapy as I suspect she has pneumonia. - Re-Assessments/Exams Free Text/Narrative Re-Assessment/Exam: 08/21/17 20:11 chest x-ray is rotated to the left. This makes the right hilar area more prominent. There appears to be a hazy infiltrate in the hilar area and right middle lobe suggestive of an early pneumonia. The left lower lung field is clear. Cardiac silhouette is normal in size. She has a Port-A-Cath left upper anterior chest. Will be started on Levaquin 750 mg IV. BP is 111/69. 08/21/17 20:34 Influenza screen is negative.Labs are back. Total white count is normal at 8.44 with left shift of 79% neutrophils no bands reported. Hemoglobin is 11.4 with hematocrit of 35.1. Platelet count is 271,000. Sodium 137 with potassium of 3.8. Chloride is 102 with bicarbonate 24. And a gap is 14.8. BUN is 10 with a creatinine of 0.6 GFR is greater than 60. Glucose is 84. Lactic acid 0.9. Calcium 8.3 which is slightly low. Magnesium normal at 2.0. Liver function is normal. C-reactive protein is elevated at 9.5. BNP is normal at 137. Mycoplasma Titre will be ordered 08/21/17 20:41 Patient is still experiencing a good deal of back pain. She thinks it's aggravated her low back from coughing so much. Will repeat Dilaudid 1 mg IV since she has not had any repeat medication today. She still quite nauseated and I will therefore give her Phenergan 25 mg IV. This has worked well for her in the past. She's allergic to Reglan. We'll discuss case with Dr. Cobos with a view to admission to the hospital. At this point time she can't eat or drink or keep anything down due to nausea with uncontrolled pain. Fever appears to be breaking. 08/21/17 20:42 08/21/17 21:[address] Cobos and he agrees to admit the patient to the [facility] surgery floor on telemetry. Departure - Departure Time of Disposition: 21:24 Disposition: Admitted As Inpatient 67 Condition: Fair Clinical Impression: Chronic pain syndrome, History of Uli-en-Y gastric bypass, Nicotine dependence Pneumonia Qualifiers: Pneumonia type: due to unspecified organism Laterality: right Lung location: middle lobe of lung Qualified Code(s): J18.1 - Lobar pneumonia, unspecified organism Nausea and vomiting Qualifiers: Vomiting type: bilious vomiting Qualified Code(s): R11.14 - Bilious vomiting - Discharge Information Referrals: PCP,None [Primary Care Provider] - Forms: ED Department Discharge - My Orders Last 24 Hours: My Active Orders 08/21/17 19:17 EKG Documentation Completion [RC] STAT Chest 1V Frontal [CR] Stat Blood Culture x2 Reflex Set [OM.PC] Stat 08/21/17 19:22 INFLUENZA A+B AG SCREEN [RM] Stat 08/21/17 19:30 CULTURE BLOOD [BC] Stat Dextrose 5%-0.9% NaCl [Dextrose 5%-Normal Saline] 1,000 ml IV ASDIRECTED 08/21/17 19:40 CULTURE BLOOD [BC] Stat 08/21/17 19:45 RT Aerosol Therapy [RC] ASDIRECTED 08/21/17 20:12 Levofloxacin/Dextrose 5%-Water [Levaquin in D5W 750 MG/150 ML] 750 mg Premix Bag 1 bag IV ONETIME 08/21/17 21:20 URINALYSIS W/MICROSCOPIC [UA W/MICROSCOPIC] [URIN] Stat 08/21/17 21:25 Acetaminophen [Tylenol] 650 mg PO NOW ONE - Assessment/Plan Last 24 Hours: My Active Orders 08/21/17 19:17 EKG Documentation Completion [RC] STAT Chest 1V Frontal [CR] Stat Blood Culture x2 Reflex Set [OM.PC] Stat 08/21/17 19:22 INFLUENZA A+B AG SCREEN [RM] Stat 08/21/17 19:30 CULTURE BLOOD [BC] Stat Dextrose 5%-0.9% NaCl [Dextrose 5%-Normal Saline] 1,000 ml IV ASDIRECTED 08/21/17 19:40 CULTURE BLOOD [BC] Stat 08/21/17 19:45 RT Aerosol Therapy [RC] ASDIRECTED 08/21/17 20:12 Levofloxacin/Dextrose 5%-Water [Levaquin in D5W 750 MG/150 ML] 750 mg Premix Bag 1 bag IV ONETIME 08/21/17 21:20 URINALYSIS W/MICROSCOPIC [UA W/MICROSCOPIC] [URIN] Stat 08/21/17 21:25 Acetaminophen [Tylenol] 650 mg PO NOW ONE
[2017-08-21] MEDS ORDERED: Ondansetron 4 MG/2 ML SDV IVPUSH ONE (19:30)
[2017-08-21] MEDS ORDERED: Dextrose 5%-0.9% NaCl 1,000 ML IV SCH (19:30)
[2017-08-21] MEDS ORDERED: HYDROmorphone 0.5 MG/0.5 ML SYRINGE IVPUSH ONE ×3 (19:34→20:40)
[2017-08-21] MEDS ORDERED: Ibuprofen 600 MG Tab PO ONE (19:45)
[2017-08-21] MEDS ORDERED: Albuterol/Ipratropium 3.0-0.5 MG/3 ML Neb Soln NEB ONE (19:45)
[2017-08-21] MEDS ORDERED: Levofloxacin/Dextrose 5%-Water 750 MG in Premix Bag 1 BAG IV ONE (20:12)
[2017-08-21] MEDS ORDERED: Promethazine 25 MG in Sodium Chloride 0.9% 50 ML IV ONE (20:40)
[2017-08-21] MEDS ORDERED: Acetaminophen 325 MG Tab PO ONE (21:25)
[2017-08-21] MEDS ORDERED: Pneumococcal Polyvalent-23 Vaccine 0.5 ML SDV IM ONE (22:25)
[2017-08-21] MEDS ORDERED: Diphtheria,Pertussis(Acell),Tetanus Vaccine 0.5 ML SDV IM ONE (22:25)
[2017-08-21] MEDS ORDERED: SUMATRIPTAN SUCCINATE PO PRN (22:53)
[2017-08-21] MEDS ORDERED: Promethazine 25 MG Tab PO PRN (22:53)
[2017-08-21] MEDS ORDERED: Albuterol/Ipratropium 3.0-0.5 MG/3 ML Neb Soln INH PRN (22:53)
[2017-08-21] MEDS ORDERED: Bisacodyl 5 MG Tab PO PRN (22:56)
[2017-08-21] MEDS ORDERED: Promethazine 12.5 MG in Sodium Chloride 0.9% 50 ML IV PRN (22:56)
[2017-08-21] MEDS ORDERED: Ondansetron 4 MG/2 ML SDV IV PRN (22:56)
[2017-08-21] MEDS ORDERED: Magnesium Hydroxide 400 MG/5 ML Susp 30 ML Cup PO PRN (22:56)
[2017-08-21] MEDS ORDERED: Polyethylene Glycol 3350 Powder 17 GM Packet PO PRN (22:56)
[2017-08-21] MEDS ORDERED: LORazepam 2 MG/ML SDV IV PRN (22:56)
[2017-08-21] MEDS ORDERED: LORazepam 2 MG/ML SDV IVPUSH PRN (22:59)
[2017-08-21] MEDS ORDERED: hydrALAZINE 20 MG/ML SDV IVPUSH PRN (22:59)
[2017-08-21] MEDS ORDERED: Metoprolol Tartrate 5 MG/5 ML SDV IVPUSH PRN (22:59)
[2017-08-21] MEDS ORDERED: Cyanocobalamin (Vitamin B12) 1,000 MCG/ML SDV SUBCUT SCH (23:00)
[2017-08-21] MEDS ORDERED: guaiFENesin/Dextromethorphan 100-10 MG/5 ML Soln 5 ML Cup PO PRN (23:06)
--- NOTE | 2017-08-21 23:07 | PCM.HP ---
H&P History of Present Illness - General Date of Service: 08/21/17 Admit Problem/Dx: Admission Diagnosis/Problem Admission Diagnosis/Problem Pneumonia Source of Information: Patient, Old Records, Provider, RN Notes Reviewed History Limitations: Reports: No Limitations - History of Present Illness Initial Comments - Free Text/Narative: This is a 57-year-old white female with past medical history of impaired vision , COPD with bronchitis, recurrent pneumonia, history of bowel obstruction, history of gastric bypass surgery with multiple complications, GERD, History of gastric ulcer, OA/DJD, chronic back pain, and anxiety who presents to the emergency department with a 3 day history of fever and chills associated with generalize body aches/pains along with headache and pleuritic chest pain. She also reports productive cough that is dark-greenish in color. Patient carries a history of 35 pack years of smoking and smokes about half to 1 pack per day. She is on breathing treatments and puffers but does not require home O2. Patient reports similar episode in the past wherein she was admitted for severe pneumonia and subsequently developed sepsis. She has taken some Tylenol to improve her symptoms but without much help. Her chest pain is worsened by taking deep breaths. Her initial workup in emergency department shows a CBC remarkable for MPV of 9.2 , neutrophils of 79, lymphocytes of 14, and eosinophils/basophils of 0%. Her chemistry is remarkable for Calcium of 8.3, alkaline phosphatase of 118, CRP of 9.5, proBNP 137, total protein 6.2, and albumin of 2.6. Her initial troponin never is within normal limits. Her UA is negative for UTI. Her chest x-ray shows subtle changes in the left lower lobe but could not appreciate definite pneumonia. Patient is being admitted for medical treatment of acute bronchitis/pneumonia. She is DNR/DNI. Generalized Pain Score (Numeric/FACES): 9 - Related Data Allergies/Adverse Reactions: Allergies Allergy/AdvReac Type Severity Reaction Status Date / Time codeine Allergy Hives Verified 08/21/17 23:03 ketorolac [From Toradol] Allergy Blisters Verified 08/21/17 23:03 morphine Allergy Itching Verified 08/21/17 23:03 nalbuphine HCl [From Nubain] Allergy Hives Verified 08/21/17 23:03 chlorpromazine HCl AdvReac Anxiety Verified 08/21/17 23:03 [From Thorazine] haloperidol [From Haldol] AdvReac Anxiety Verified 08/21/17 23:03 haloperidol lactate AdvReac Anxiety Verified 08/21/17 23:03 [From Haldol] Home Medications: Home Meds Cyanocobalamin (Vitamin B-12) [Cyanocobalamin Injection] 1,000 mg INJECT ASDIRECTED 10/30/13 [History] Folic Acid/Multivit-Min/Lutein [Multi-Vitamin Gummies] 1 tab PO DAILY 10/30/13 [ History] Hydrocodone/Acetaminophen [Hydrocodon-Acetaminophn 10-325] 1 - 2 tab PO Q4H PRN 10/30/13 [History] Iron 1 tab PO DAILY 10/30/13 [History] Pantoprazole [ProTONIX] 40 mg PO DAILY 10/30/13 [History] Pregabalin [Lyrica] 150 mg PO TID 10/30/13 [History] Promethazine [Phenergan] 25 mg PO Q4H PRN 10/30/13 [History] SUMAtriptan Succinate [Imitrex] 1 tab PO ASDIRECTED PRN 10/30/13 [History] Albuterol/Ipratropium [DuoNeb 3.0-0.5 MG/3 ML] 3 ml INH Q4H PRN 08/21/17 [ History] Methadone 10 mg PO DAILY 08/22/17 [History] Past Medical History HEENT History: Reports: Impaired Vision, Other (See Below) Other HEENT History: wears glasses Respiratory History: Reports: Bronchitis, Recurrent, COPD, Pneumonia, Recurrent Other Respiratory History: Patient has gone septic from pneumonia x2 Gastrointestinal History: Reports: Bowel Obstruction, Other (See Below) Genitourinary History: Reports: None [employer] History: Reports: Musculoskeletal History: Reports: Arthritis, Back Pain, Chronic, Fracture Neurological History: Reports: Migraines Psychiatric History: Reports: Anxiety Hematologic History: Reports: Anemia, Blood Transfusion(s), Iron Deficiency - Infectious Disease History Infectious Disease History: Reports: Chicken Pox, MRSA - Past Surgical History HEENT Surgical History: Reports: None Respiratory Surgical History: Reports: None GI Surgical History: Reports: Bariatric Procedure, Cholecystectomy, Colonoscopy , EGD Other GI Surgeries/Procedures: ulcers Female Surgical History: Reports: Hysterectomy Musculoskeletal Surgical History: Reports: None Dermatological Surgical History: Reports: None Social & Family History - Family History Family Medical History: Noncontributory - Tobacco Use Smoking Status *Q: Current Every Day Smoker Years of Tobacco use: 35 Packs/Tins Daily: 1 - Caffeine Use Caffeine Use: Reports: Soda - Recreational Drug Use Recreational Drug Use: No - Living Situation & Occupation Living situation: Reports: Single Occupation: Disabled H&P Review of Systems - Review of Systems: Review Of Systems: See Below General: Reports: Fever, Chills, Malaise, Weakness, Fatigue, Weight Loss. Denies: Decreased Appetite HEENT: Reports: No Symptoms Pulmonary: Reports: Shortness of Breath, Wheezing, Pleuritic Chest Pain, Cough, Sputum (dark-green), Hemoptysis Cardiovascular: Reports: Chest Pain (with coughing), Dyspnea on Exertion, Lightheadedness. Denies: Palpitations Gastrointestinal: Reports: Abdominal Pain, Decreased Appetite, Flatus, Nausea, Vomiting. Denies: Anorexia, Constipation, Diarrhea, Difficulty Swallowing, Hematemesis Genitourinary: Reports: No Symptoms Musculoskeletal: Reports: Back Pain, Joint Pain Skin: Denies: Cyanosis, Jaundice, Mottled, Pallor, Diaphoresis, Bruising, Pruritis Psychiatric: Denies: Confusion, Mood Lability, Anxiety, Agitation, Hallucinations Neurological: Reports: Weakness. Denies: Confusion, Headache, Difficulty Walking, Gait Disturbance Hematologic/Lymphatic: Reports: Anemia Immunologic: Reports: No Symptoms Exam - Exam Exam: See Below - Vital Signs Vital Signs: Last Vital Signs Temp 37.3 C 08/21/17 21:30 Pulse 96 08/21/17 18:58 Resp 20 08/21/17 18:58 BP 118/78 08/21/17 18:58 Pulse Ox 97 08/21/17 18:58 Weight: 49.623 kg - Exam Quality Assessment: No: Supplemental Oxygen General: Alert, Oriented, Cooperative, Other (smells cigarette). No: Mild Distress HEENT: Conjunctiva Clear, EACs Clear, EOMI, Hearing Intact, Mucosa Moist & [place] , Nares Patent, Normal Nasal Septum, Posterior Pharynx Clear, Pupils Equal, Pupils Reactive Neck: Supple, Trachea Midline, +2 Carotid Pulse wo Bruit, Full Range of Motion Lungs: Normal Respiratory Effort, Decreased Breath Sounds, Rhonchi, Wheezing ( scattered) Cardiovascular: Regular Rate, Regular Rhythm GI/Abdominal Exam: Normal Bowel Sounds, Soft, No Organomegaly, No Distention, No Abnormal Bruit, No Mass, Tender (epigastric region) (Female) Exam: Deferred Rectal (Female) Exam: Deferred Back Exam: Normal Inspection, Decreased Range of Motion Extremities: Normal Inspection, Normal Range of Motion, Non-Tender, No Pedal Edema, Normal Capillary Refill Peripheral Pulses: 2+: Posterior Tibial (L), Posterior Tibial (R), Dorsalis Pedis (L), Dorsalis Pedis (R) Skin: Warm, Dry, Intact Neuro Extensive - Mental Status: Oriented x3, Normal Cognition, Memory Intact Neuro Extensive - Motor, Sensory, Reflexes: CN II-XII Intact, Normal Gait Psychiatric: Alert, Normal Affect, Normal Mood - Patient Data Lab Results Last 24 hrs: Laboratory Results - last 24 hr 08/21/17 08/21/17 08/21/17 Range/Units 19:40 19:40 19:40 WBC 8.44 (3.98-10.04) K/mm3 RBC 4.18 (3.98-5.22) M/mm3 Hgb 11.4 (11.2-15.7) gm/L Hct 35.1 (34.1-44.9) % MCV 84.0 (79.4-94.8) fl MCH 27.3 (25.6-32.2) pg MCHC 32.5 (32.2-35.5) g/dl RDW Std Deviation 45.2 (36.4-46.3) fL Plt Count 271 (182-369) K/mm3 MPV 9.2 L (9.4-12.3) fl Neutrophils % (Manual) 79 H (40-60) % Band Neutrophils % 0 (0-10) % Lymphocytes % (Manual) 14 L (20-40) % Atypical Lymphs % 0 % Monocytes % (Manual) 7 (2-10) % Eosinophils % (Manual) 0 L (0.7-5.8) % Basophils % (Manual) 0 L (0.1-1.2) Platelet Estimate Adequate Plt Morphology Comment Normal Hypochromasia 1+ slight Poikilocytosis 1+ slight RBC Morph Comment Not Reportable Sodium 137 (136-145) mEq/L Potassium 3.8 (3.5-5.1) mEq/L Chloride 102 (98-107) mEq/L Carbon Dioxide 24 (21-32) mEq/L Anion Gap 14.8 (5-15) BUN 10 (7-18) mg/dL Creatinine 0.6 (0.55-1.02) mg/dL Est Cr Clr Drug Dosing 82.80 mL/min Estimated GFR (MDRD) > 60 (>60) mL/min BUN/Creatinine Ratio 16.7 (14-18) Glucose 84 (74-106) mg/dL Lactic Acid (0.4-2.0) mmol/L Calcium 8.3 L (8.5-10.1) mg/dL Magnesium (1.8-2.4) mg/dl Total Bilirubin 0.6 (0.2-1.0) mg/dL AST 17 (15-37) U/L ALT 18 (14-59) U/L Alkaline Phosphatase 118 H (46-116) U/L Troponin I < 0.017 (0.00-0.056) ng/mL C-Reactive Protein 9.5 H* (<1.0) mg/dL NT-Pro-B Natriuret Pep 137 H (0-125) pg/mL Total Protein 6.2 L (6.4-8.2) g/dl Albumin 2.6 L (3.4-5.0) g/dl Globulin 3.6 gm/dL Albumin/Globulin Ratio 0.7 L (1-2) Urine Color (Yellow) Urine Appearance (Clear) Urine pH (5.0-8.0) Ur Specific Blackwell (1.005-1.030) Urine Protein (Negative) Urine Glucose (UA) (Negative) Urine Ketones (Negative) Urine Occult Blood (Negative) Urine Nitrite (Negative) Urine Bilirubin (Negative) Urine Urobilinogen (0.2-1.0) Ur Leukocyte Esterase (Negative) Urine RBC (0-5) /hpf Urine WBC (0-5) /hpf Ur Epithelial Cells (0-5) /hpf Urine Bacteria (FEW) /hpf Urine Mucus (FEW) /hpf Mycoplasma pneumon IgM (NEGATIVE) 08/21/17 08/21/17 08/21/17 Range/Units 19:40 19:40 19:40 WBC (3.98-10.04) K/mm3 RBC (3.98-5.22) M/mm3 Hgb (11.2-15.7) gm/L Hct (34.1-44.9) % MCV (79.4-94.8) fl MCH (25.6-32.2) pg MCHC (32.2-35.5) g/dl RDW Std Deviation (36.4-46.3) fL Plt Count (182-369) K/mm3 MPV (9.4-12.3) fl Neutrophils % (Manual) (40-60) % Band Neutrophils % (0-10) % Lymphocytes % (Manual) (20-40) % Atypical Lymphs % % Monocytes % (Manual) (2-10) % Eosinophils % (Manual) (0.7-5.8) % Basophils % (Manual) (0.1-1.2) Platelet Estimate Plt Morphology Comment Hypochromasia Poikilocytosis RBC Morph Comment Sodium (136-145) mEq/L Potassium (3.5-5.1) mEq/L Chloride (98-107) mEq/L Carbon Dioxide (21-32) mEq/L Anion Gap (5-15) BUN (7-18) mg/dL Creatinine (0.55-1.02) mg/dL Est Cr Clr Drug Dosing mL/min Estimated GFR (MDRD) (>60) mL/min BUN/Creatinine Ratio (14-18) Glucose (74-106) mg/dL Lactic Acid 0.9 (0.4-2.0) mmol/L Calcium (8.5-10.1) mg/dL Magnesium 2.0 (1.8-2.4) mg/dl Total Bilirubin (0.2-1.0) mg/dL AST (15-37) U/L ALT (14-59) U/L Alkaline Phosphatase (46-116) U/L Troponin I (0.00-0.056) ng/mL C-Reactive Protein (<1.0) mg/dL NT-Pro-B Natriuret Pep (0-125) pg/mL Total Protein (6.4-8.2) g/dl Albumin (3.4-5.0) g/dl Globulin gm/dL Albumin/Globulin Ratio (1-2) Urine Color (Yellow) Urine Appearance (Clear) Urine pH (5.0-8.0) Ur Specific Blackwell (1.005-1.030) Urine Protein (Negative) Urine Glucose (UA) (Negative) Urine Ketones (Negative) Urine Occult Blood (Negative) Urine Nitrite (Negative) Urine Bilirubin (Negative) Urine Urobilinogen (0.2-1.0) Ur Leukocyte Esterase (Negative) Urine RBC (0-5) /hpf Urine WBC (0-5) /hpf Ur Epithelial Cells (0-5) /hpf Urine Bacteria (FEW) /hpf Urine Mucus (FEW) /hpf Mycoplasma pneumon IgM Negative (NEGATIVE) 08/21/17 Range/Units 21:20 WBC (3.98-10.04) K/mm3 RBC (3.98-5.22) M/mm3 Hgb (11.2-15.7) gm/L Hct (34.1-44.9) % MCV (79.4-94.8) fl MCH (25.6-32.2) pg MCHC (32.2-35.5) g/dl RDW Std Deviation (36.4-46.3) fL Plt Count (182-369) K/mm3 MPV (9.4-12.3) fl Neutrophils % (Manual) (40-60) % Band Neutrophils % (0-10) % Lymphocytes % (Manual) (20-40) % Atypical Lymphs % % Monocytes % (Manual) (2-10) % Eosinophils % (Manual) (0.7-5.8) % Basophils % (Manual) (0.1-1.2) Platelet Estimate Plt Morphology Comment Hypochromasia Poikilocytosis RBC Morph Comment Sodium (136-145) mEq/L Potassium (3.5-5.1) mEq/L Chloride (98-107) mEq/L Carbon Dioxide (21-32) mEq/L Anion Gap (5-15) BUN (7-18) mg/dL Creatinine (0.55-1.02) mg/dL Est Cr Clr Drug Dosing mL/min Estimated GFR (MDRD) (>60) mL/min BUN/Creatinine Ratio (14-18) Glucose (74-106) mg/dL Lactic Acid (0.4-2.0) mmol/L Calcium (8.5-10.1) mg/dL Magnesium (1.8-2.4) mg/dl Total Bilirubin (0.2-1.0) mg/dL AST (15-37) U/L ALT (14-59) U/L Alkaline Phosphatase (46-116) U/L Troponin I (0.00-0.056) ng/mL C-Reactive Protein (<1.0) mg/dL NT-Pro-B Natriuret Pep (0-125) pg/mL Total Protein (6.4-8.2) g/dl Albumin (3.4-5.0) g/dl Globulin gm/dL Albumin/Globulin Ratio (1-2) Urine Color Yellow (Yellow) Urine Appearance Clear (Clear) Urine pH 7.0 (5.0-8.0) Ur Specific [place] 1.015 (1.005-1.030) Urine Protein Negative (Negative) Urine Glucose (UA) 2+ H (Negative) Urine Ketones Trace H (Negative) Urine Occult Blood Negative (Negative) Urine Nitrite Negative (Negative) Urine Bilirubin Negative (Negative) Urine Urobilinogen 1.0 (0.2-1.0) Ur Leukocyte Esterase Negative (Negative) Urine RBC 0-5 (0-5) /hpf Urine WBC 0-5 (0-5) /hpf Ur Epithelial Cells 0-5 (0-5) /hpf Urine Bacteria Rare (FEW) /hpf Urine Mucus Not seen (FEW) /hpf Mycoplasma pneumon IgM (NEGATIVE) Result Diagrams: 08/22/17 05:47 08/22/17 05:47 James Results Last 24 hrs: Microbiology 08/21/17 19:22 Influenza Type A Antigen Screen - Final Nasal Aspirate, Unspecified NEGATIVE INFLUENZA A VIRUS AG Influenza Type B Antigen Screen - Final NEGATIVE INFLUENZA B VIRUS AG EKG INTERPRETATION EKG Date: 08/21/17 Time: 19:55 Rhythm: NSR Rate (Beats/Min): 88 [place]: Normal P-Wave: Present QRS: Other (Q wave in V1-V3) ST-T: Normal QT: Normal Problem List Initiated/Reviewed/Updated: Yes Orders Last 24hrs: Active Orders 24 hr Category Date Time Status Admission Status [Patient Status] [ADT] Routine ADT 08/21/17 21:44 Active Patient Status [ADT] Routine ADT 08/21/17 21:38 Active EKG Documentation Completion [RC] STAT Care 08/21/17 19:17 Active Height and Weight [RC] DAILY Care 08/21/17 22:56 Ordered Incentive Spirometry [RT Incentive Spirometry] [RC] Care 08/21/17 23:05 Ordered ASDIRECTED Intake and Output [RC] QSHIFT Care 08/21/17 22:56 Ordered Oxygen Therapy [RC] PRN Care 08/21/17 22:56 Ordered Pulse Oximetry [RC] PRN Care 08/21/17 22:56 Ordered RT Aerosol Therapy [RC] ASDIRECTED Care 08/21/17 19:45 Active Up With Assistance [RC] ASDIRECTED Care 08/21/17 22:56 Ordered Up ad Antoinette [RC] ASDIRECTED Care 08/21/17 22:56 Ordered VTE/DVT Education [RC] PER UNIT ROUTINE Care 08/21/17 22:56 Ordered Vaccines to be Administered [RC] PER UNIT ROUTINE Care 08/21/17 22:25 Active Vital Signs [RC] Q4H Care 08/21/17 22:56 Ordered Consult to Case Management [CONS] Routine Cons 08/21/17 22:58 Ordered Consult to Fruit Checker [CONS] Routine Cons 08/21/17 22:58 Ordered Respiratory Care Assess and Treatment [CONS] Routine Cons 08/21/17 22:58 Ordered Regular Diet [DIET] Diet 08/21/17 Breakfast Ordered Chest 1V Frontal [CR] Stat Exams 08/21/17 19:17 Taken BASIC METABOLIC PANEL,BMP [CHEM] AM Lab 08/22/17 05:11 Ordered BASIC METABOLIC PANEL,BMP [CHEM] AM Lab 08/23/17 05:11 Ordered BASIC METABOLIC PANEL,BMP [CHEM] AM Lab 08/24/17 05:11 Ordered BASIC METABOLIC PANEL,BMP [CHEM] AM Lab 08/25/17 05:11 Ordered C-REACTIVE PROTEIN [CHEM] AM Lab 08/22/17 05:11 Ordered C-REACTIVE PROTEIN [CHEM] AM Lab 08/23/17 05:11 Ordered C-REACTIVE PROTEIN [CHEM] AM Lab 08/24/17 05:11 Ordered C-REACTIVE PROTEIN [CHEM] AM Lab 08/25/17 05:11 Ordered C-REACTIVE PROTEIN [CHEM] AM Lab 08/26/17 05:11 Ordered CBC WITH AUTO DIFF [HEME] AM Lab 08/22/17 05:11 Ordered CBC WITH AUTO DIFF [HEME] AM Lab 08/23/17 05:11 Ordered CBC WITH AUTO DIFF [HEME] AM Lab 08/24/17 05:11 Ordered CBC WITH AUTO DIFF [HEME] AM Lab 08/25/17 05:11 Ordered CULTURE BLOOD [BC] Stat Lab 08/21/17 19:30 Received CULTURE BLOOD [BC] Stat Lab 08/21/17 19:40 Received CULTURE SPUTUM + SMEAR [RM] Stat Lab 08/21/17 22:58 Ordered INFLUENZA A+B AG SCREEN [RM] Stat Lab 08/21/17 19:22 Ordered MAGNESIUM [CHEM] AM Lab 08/22/17 05:11 Ordered MAGNESIUM [CHEM] AM Lab 08/23/17 05:11 Ordered MAGNESIUM [CHEM] AM Lab 08/24/17 05:11 Ordered MAGNESIUM [CHEM] AM Lab 08/25/17 05:11 Ordered STREP PNEUMONIAE ANTIGEN [MREF] Stat Lab 08/21/17 23:05 Ordered Acetaminophen/HYDROcodone [Corea 325-10 MG] Med 08/21/17 23:00 Ordered 1 tab PO Q4H Albuterol/Ipratropium [DuoNeb 3.0-0.5 MG/3 ML] Med 08/21/17 22:53 Ordered 3 ml INH Q4H PRN Amitriptyline [Elavil] Med 08/22/17 09:00 Ordered 2 tab PO DAILY Bisacodyl [Dulcolax] Med 08/21/17 22:56 Ordered 5 mg PO DAILY PRN Cyanocobalamin (Vitamin B12) [Vitamin B12] Med 08/21/17 23:00 Ordered 1,000,000 mcg SUBCUT ASDIRECTED Dextromethorphan/guaiFENesin [Robitussin DM] Med 08/21/17 23:06 Ordered 10 ml PO Q4H PRN Dextrose 5%-0.9% NaCl [Dextrose 5%-Normal Saline] 1,000 Med 08/21/17 19:30 Active ml IV ASDIRECTED Docusate Sodium [Colace] Med 08/22/17 09:00 Ordered 100 mg PO BID Docusate Sodium/Sennosides [Senna Plus] Med 08/21/17 22:56 Ordered 1 tab PO BID PRN Folic Acid/Multivit-Min/Lutein [Multi-Vitamin Gummies] Med 08/22/17 09:00 Ordered 1 tab PO DAILY HYDROmorphone Med 08/21/17 22:53 Ordered 4 mg PO Q4H PRN Iron [Iron] Med 08/22/17 09:00 Ordered 1 tab PO DAILY LORazepam [Ativan] Med 08/21/17 22:56 Ordered 1 mg IV Q6H PRN LORazepam [Ativan] Med 08/21/17 22:59 Ordered 2 mg IVPUSH Q4H PRN Magnesium Hydroxide [Milk of Magnesia] Med 08/21/17 22:56 Ordered 30 ml PO Q12H PRN Magnesium Rep Pharmacy to Dose [Pharmacy to Dose - Med 08/21/17 23:00 Ordered Magnesium Replacement] 1 dose .XX ASDIRECTED Metoprolol Tartrate [Lopressor] Med 08/21/17 22:59 Ordered 5 mg IVPUSH Q4H PRN Ondansetron [Zofran] Med 08/21/17 22:56 Ordered 4 mg IV Q6H PRN Pantoprazole [ProTONIX] Med 08/22/17 09:00 Ordered 40 mg PO DAILY Polyethylene Glycol 3350 [MiraLAX] Med 08/21/17 22:56 Ordered 17 gm PO DAILY PRN Potassium Rep Pharmacy to Dose [Pharmacy to Dose - Med 08/21/17 23:00 Ordered Potassium Replacement] 1 dose .XX ASDIRECTED Pregabalin Med 08/22/17 09:00 Ordered 150 mg PO BID Promethazine [Phenergan] Med 08/21/17 22:53 Ordered 25 mg PO Q4H PRN Promethazine [Phenergan] 12.5 mg Med 08/21/17 22:56 Ordered Sodium Chloride 0.9% [Normal Saline] 50 ml IV Q6H SUMAtriptan Succinate [Imitrex] Med 08/21/17 22:53 Ordered 1 tab PO ASDIRECTED PRN Sodium Chloride 0.9% [Normal Saline] 1,000 ml Med 08/21/17 23:00 Ordered IV ASDIRECTED hydrALAZINE [Apresoline] Med 08/21/17 22:59 Ordered 20 mg IVPUSH Q4H PRN Blood Culture x2 Reflex Set [OM.PC] Stat Oth 08/21/17 19:17 Ordered Sequential Compression Device [OM.PC] Per Unit Routine Oth 08/21/17 22:56 Ordered Resuscitation Status Routine Resus Stat 08/21/17 22:56 Ordered Medication Orders Hydrocodone Bitart/Acetaminophen (Corea 325-10 Mg) 1 tab PO Q4H JOSEFA Albuterol/Ipratropium (Duoneb 3.0-0.5 Mg/3 Ml) 3 ml INH Q4H PRN PRN Reason: Dyspnea Bisacodyl (Dulcolax) 5 mg PO DAILY PRN PRN Reason: Constipation Cyanocobalamin (Vitamin B12) 1,000,000 mcg SUBCUT ASDIRECTED [facility] Docusate Sodium (Colace) 100 mg PO BID JOSEFA Hydralazine HCl (Apresoline) 20 mg IVPUSH Q4H PRN PRN Reason: Hypertension Hydromorphone HCl (Dilaudid) 4 mg PO Q4H PRN PRN Reason: Pain Dextrose/Sodium Chloride (Dextrose 5%-Normal Saline) 1,000 mls @ 500 mls/hr IV ASDIRECTED [facility] Last Admin: 08/21/17 19:44 Dose: 500 mls/hr Promethazine HCl 12.5 mg/ (Sodium Chloride) 50.5 mls @ 100 mls/hr IV Q6H PRN PRN Reason: Nausea/Vomiting Sodium Chloride (Normal Saline) 1,000 mls @ 75 mls/hr IV ASDIRECTED [facility] Lorazepam (Ativan) 1 mg IV Q6H PRN PRN Reason: Anxiety Lorazepam (Ativan) 2 mg IVPUSH Q4H PRN PRN Reason: Seizures Magnesium Hydroxide (Milk Of Magnesia) 30 ml PO Q12H PRN PRN Reason: Constipation Magnesium Sulfate (Pharmacy To Dose - Magnesium Replacement) 1 dose .XX ASDIRECTED [facility] Metoprolol Tartrate (Lopressor) 5 mg IVPUSH Q4H PRN PRN Reason: Tachycardia Non-Formulary Medication (Amitriptyline [Elavil]) 2 tab PO DAILY [facility] Non-Formulary Medication (Folic Acid/Multivit-Min/Lutein [Multi-Vitamin Gummies] ) 1 tab PO DAILY [facility] Non-Formulary Medication (Iron [Iron]) 1 tab PO DAILY [facility] Non-Formulary Medication (Pregabalin) 150 mg PO BID JOSEFA Non-Formulary Medication (Sumatriptan Succinate [Imitrex]) 1 tab PO ASDIRECTED PRN PRN Reason: Headache Ondansetron HCl (Zofran) 4 mg IV Q6H PRN PRN Reason: Nausea/Vomiting Pantoprazole Sodium (Protonix) 40 mg PO DAILY [facility] Polyethylene Glycol (Miralax) 17 gm PO DAILY PRN PRN Reason: Constipation Potassium Chloride (Pharmacy To Dose - Potassium Replacement) 1 dose .XX ASDIRECTED JOSEFA Promethazine HCl (Phenergan) 25 mg PO Q4H PRN PRN Reason: Nausea Senna/Docusate Sodium (Senna Plus) 1 tab PO BID PRN PRN Reason: Constipation Assessment/Plan Comment:: Assessment/Plan: Acute: Left Lower Lobe PNA/Bronchitis - Acute on Chronic - Risk factors: COPD, Active Smoker, GERD, Recurrent PNA and Opioid Dependence - Subjective fever - Afebrile since presentation to ED - No leukocytosis and CRP is mildly elevated at 9.5 - CXR not impressive for infiltrate - PSI/PORT Score is 46 points Risk Class II, 0.6-0.9% mortality. Outpatient treatment reasonable, barring other factors affecting care - Received IV Levaquin in ED-will continue daily - RT care, Supplemental O2, Decongestant/Expectorant, bronchodilators Continue Pain Medications - Mycoplasma pneumonia Ag and Influenza screening?? negative - Strep pneumonia, Viral Panel and Blood Culture x2 pending Pleuritic Chest Pain - R/o PE - D-dimer and consider CTA - Resume Home Pain Medications - IS as directed and Tessalon Perles 200 mg po BID GERD/Pyrosis - Acute on Chronic - Hx/o Gastric By Pass, PUD and Active Smoker - Continue PPI Nausea/Vomiting - Likely 2/2 Above - PRN anti-emesis 12 Lbs Weight Loss in the past 4-6 weeks - Persistent Pneumonia vs Malignancy - May need further work up Chronic: Impaired Vision COPD- 35 year hx (smokes 1/2 to 1.5 ppd), she is not in acute exacerbation Recurrent PNA GERD with Hx/o Ulcers Hx/o Bowel Obstruction Hx/o Gastric Surgery with Multiple Complications OA/DJD Chronic Pain Syndrome, Opioid Dependent Back Pain Anxiety Tobacco Use Disorder-Nicotine Patch and Counseled on Smoking Cessation NATHALIE Migraine HAs Peripheral Neuropathy Plan: Admit to [facility] resume Home Meds Routine AM Labs RT consult DVT/GI PPx: SCDs and PPI SW/CM for d/c planning Code status: DNR/DNI Additional orders as above
[2017-08-21] MEDS ORDERED: Sodium Chloride 0.9% 500 ML IV ONE (23:10)
[2017-08-21] MEDS: Acetaminophen/HYDROcodone 325-10 MG Tab PO SCH (23:15)
[2017-08-21] MEDS: HYDROmorphone 2 MG Tab PO PRN (23:15)
[2017-08-21] MEDS: Potassium Chloride 20 MEQ Tab.ER PO SCH (23:49)
[2017-08-21] MEDS: Sodium Chloride 0.9% 1,000 ML IV SCH (23:49)
[2017-08-22] MEDS: Potassium Chloride 20 MEQ Tab.ER PO SCH (03:01)
[2017-08-22] MEDS: Acetaminophen/HYDROcodone 325-10 MG Tab PO SCH ×3 (03:01→11:21)
[2017-08-22] MEDS ORDERED: HYDROmorphone 0.5 MG/0.5 ML SYRINGE IVPUSH ONE ×3 (05:33→11:24)
[2017-08-22] MEDS ORDERED: Sodium Chloride 0.9% 500 ML IV ONE (07:00)
[2017-08-22] MEDS ORDERED: Pantoprazole 40 MG Tab.CR PO SCH (07:00)
[2017-08-22] MEDS: HYDROmorphone 2 MG Tab PO PRN (08:21)
[2017-08-22] MEDS ORDERED: Sodium Chloride 0.9% 10 ML Syringe FLUSH PRN (08:32)
[2017-08-22] MEDS ORDERED: Iopamidol 755 Mg/ML 100 ML Bottle IVPUSH ONE (08:32)
[2017-08-22] MEDS ORDERED: Sodium Chloride 0.9% 100 ML IV SCH (08:45)
[2017-08-22] MEDS ORDERED: Docusate Sodium 100 MG Cap PO SCH (09:00)
[2017-08-22] MEDS ORDERED: Pregabalin 75 MG Cap PO SCH (09:00)
[2017-08-22] MEDS ORDERED: Saccharomyces Boulardii (Probiotic) 250 MG Cap PO SCH (09:00)
[2017-08-22] MEDS ORDERED: Amitriptyline 25 MG Tab PO SCH ×2 (09:00→21:00)
[2017-08-22] MEDS ORDERED: Benzonatate 100 MG Cap PO SCH (09:00)
[2017-08-22] MEDS ORDERED: Multivitamins with Minerals/Folic Acid/Lutein/Zeaxanth Tab PO SCH (09:00)
[2017-08-22] MEDS ORDERED: IRON PO SCH (09:00)
[2017-08-22] MEDS: Sodium Chloride 0.9% 1,000 ML IV SCH (10:35)
--- NOTE | 2017-08-22 10:39 | CR ---
Chest: Portable view of the chest was obtained. Comparison: Prior chest CT of 05/15/17. Mild increased density is seen behind the left heart. Area of consolidation is noted on prior chest CT with current finding being smaller then previous chest CT. Lungs otherwise are clear. Infusion port is seen entering from the left side. Heart size is normal. Mild tortuosity of the thoracic aorta is seen. Surgical clips are seen within the upper abdomen. Mild scoliosis is noted within the spine. Impression: 1. Mild increased density within the left lung base. Uncertain if this finding represents scarring from prior pneumonia within the left base that was seen on prior chest CT. Findings could also represent recurrence of pneumonia in same area. 2. Other incidental findings. Diagnostic code #3
--- NOTE | 2017-08-22 10:39 | CT ---
CT chest Technique: Multiple axial sections through the chest were obtained. Intravenous contrast was utilized. Study has been performed as a pulmonary angiogram protocol. Comparison: Prior chest CT of 05/14/17. Findings: Pulmonary arteries are well opacified. No filling defects are seen to indicate pulmonary embolism. Mediastinum and hilar regions show no adenopathy or mass. No pericardial thickening is seen. Small portion of the visualized upper abdominal structures shows a hiatal hernia as well as prior gastric surgery. Consolidation with air bronchograms are seen within the left base. This appears fairly similar to previous exam. Lungs otherwise are clear. Bone window settings were reviewed which appear within normal limits for the patient's age. Impression: 1. No findings of pulmonary embolism. 2. Continuing consolidation within the left lung base with air bronchograms. Persisting pneumonia or other chronic parenchymal process is possible. Bronchial lavage could be considered to further evaluate if patient's clinical symptoms warrant. 3. No new parenchymal lung densities are otherwise seen. Diagnostic code #3
--- NOTE | 2017-08-22 11:46 | PCM.SN ---
- Free Text/Narrative Note: CTA showed persistent consolidation within the left lung base with air bronchograms. Patient admitted having persistent back pain 4 months ago and now reports 12lbs weight loss. At this point, she needs bronchial lavage. Unfortunately, this procedure is not available here in [place] therefore she would need to go to [place] for upper level of care. Discussed findings with patient and she agreed with the transfer care plan. She will leave here via ambulance as soon as transportation arrives. She will be admitted under the services of Dr. Branch, Attending Hospitalist.
--- NOTE | 2017-08-22 11:51 | PCM.DCSUM1 ---
Discharge Summary - Hospital Course HPI Initial Comments: This is a 57-year-old white female with past medical history of impaired vision , COPD with bronchitis, recurrent pneumonia, history of bowel obstruction, history of gastric bypass surgery with multiple complications, GERD, History of gastric ulcer, OA/DJD, chronic back pain, and anxiety who presents to the emergency department with a 3 day history of fever and chills associated with generalize body aches/pains along with headache and pleuritic chest pain. She also reports productive cough that is dark-greenish in color. Patient carries a history of 35 pack years of smoking and smokes about half to 1 pack per day. She is on breathing treatments and puffers but does not require home O2. Patient reports similar episode in the past wherein she was admitted for severe pneumonia and subsequently developed sepsis. She has taken some Tylenol to improve her symptoms but without much help. Her chest pain is worsened by taking deep breaths. Her initial workup in emergency department shows a CBC remarkable for MPV of 9.2 , neutrophils of 79, lymphocytes of 14, and eosinophils/basophils of 0%. Her chemistry is remarkable for Calcium of 8.3, alkaline phosphatase of 118, CRP of 9.5, proBNP 137, total protein 6.2, and albumin of 2.6. Her initial troponin never is within normal limits. Her UA is negative for UTI. Her chest x-ray shows subtle changes in the left lower lobe but could not appreciate definite pneumonia. Patient is being admitted for medical treatment of acute bronchitis/pneumonia. She is DNR/DNI. - Discharge Data Discharge Date: 08/22/17 Discharge Disposition: DC/Tfer to Acute Hospital 02 Condition: Fair - Patient Summary/Data Operative Procedure(s) Performed: None Complications: None Consults: Consultations 08/21/17 22:58 Consult to Case Management [CONS] Routine Consult to Beauty Shop Manager [CONS] Routine Respiratory Care Assess and Treatment [CONS] Routine Labs Pending at D/C: Urine drug screen Respiratory viral panel Recommended Follow-up Testing/Procedures: Transfer to [facility] in [place], [place] for pulmonology work-up Hospital Course: Assessment/Plan: Acute: Left Lower Lobe PNA/Bronchitis - Acute on Chronic - Risk factors: COPD, Active Smoker, GERD, Recurrent PNA and Opioid Dependence - Subjective fever - Afebrile since presentation to ED - No leukocytosis and CRP is mildly elevated at 9.5 - CXR not impressive for infiltrate - PSI/PORT Score is 46 points Risk Class II, 0.6-0.9% mortality. Outpatient treatment reasonable, barring other factors affecting care - Received IV Levaquin in ED-will continue daily - RT care, Supplemental O2, Decongestant/Expectorant, bronchodilators Continue Pain Medications - Mycoplasma pneumonia Ag and Influenza screening?? negative - Strep pneumonia, Viral Panel and Blood Culture x2 pending Pleuritic Chest Pain - R/o PE --> negative per CTA - D-dimer and CTA ordered --> d-dimer negative and CTA read as: continuing consolidation within left lung base with air bronchograms, persisting pneumonia or other parenchymal process possible, and bronchial lavage could be considered - Resume Home Pain Medications - IS as directed and Tessalon Perles 200 mg po BID GERD/Pyrosis - Acute on Chronic - Hx/o Gastric By Pass, PUD and Active Smoker - Continue PPI Nausea/Vomiting - Likely 2/2 Above - PRN anti-emesis 12 Lbs Weight Loss in the past 4-6 weeks - Persistent Pneumonia vs Malignancy - May need further work up Chronic: Impaired Vision COPD- 35 year hx (smokes 1/2 to 1.5 ppd), she is not in acute exacerbation Recurrent PNA GERD with Hx/o Ulcers Hx/o Bowel Obstruction Hx/o Gastric Surgery with Multiple Complications OA/DJD Chronic Pain Syndrome, Opioid Dependent Back Pain Anxiety Tobacco Use Disorder-Nicotine Patch and Counseled on Smoking Cessation NATHALIE Migraine HAs Peripheral Neuropathy Plan: Admit to [facility] --> transfer to [facility] in [place], [place] for pulmonology work -up resume Home Meds Routine AM Labs RT consult DVT/GI PPx: SCDs and PPI SW/CM for d/c planning Code status: DNR/DNI PCP: Dr. Deion Vnicent (reports she has not seen him for >1 year) Additional orders as above Hospital Course: Lalitha was admitted to [facility] for medical treatment of acute bronchitis/ pneumonia. Patient does have a 35 pack year history of smoking and currently smokes 1/2 to 1 pack per day. ED work-up showed a CBC remarkable for MPV of 9.2 , neutrophils of 79, lymphocytes of 14, and eosinophils/basophils of 0%. Her chemistry is remarkable for Calcium of 8.3, alkaline phosphatase of 118, CRP of 9.5, proBNP 137, total protein 6.2, and albumin of 2.6. Mycoplasma pneumoniae was negative. Her initial troponin was within normal limits. Her UA is negative for UTI. Chest x-ray in ED showed subtle changes in the left lower lobe but could not appreciate definite pneumonia. Levaquin was initiated in the ED. CTA ordered and compared to CT of chest performed in April 2017. CTA read as continuing consolidation within left lung base with air bronchograms, persisting pneumonia or other parenchymal process possible, and bronchial lavage could be considered. She has been afebrile during admission. She did endorse an unintentional 12# weight loss in the past 4-6 weeks from her reported UBW of 120# Patient reported persistent pain during admission; she is seeing a pain specialist in [place] and is taking methadone, [place], Lyrica per PDMP report. For her pain, she has received Dilaudid and [place]. Given patient's persistent pulmonary symptoms, recent weight loss and CTA findings, decision was made to transfer patient to [facility] in [place], [place] for pulmonology work-up. Dr. Branch has accepted the patient, and patient is agreeable to transfer. - Patient Instructions Diet: Usual Diet as Tolerated Activity: As Tolerated Driving: Do Not Drive Showering/Bathing: May Shower Notify Provider of: Fever, Increased Pain, Swelling and Redness, Nausea and/or Vomiting Other/Special Instructions: - Transfer to [place] under the services of Dr. Branch, Hospitalist - Discharge Plan Home Medications: Home Meds Cyanocobalamin (Vitamin B-12) [Cyanocobalamin Injection] 1,000 mg INJECT ASDIRECTED 10/30/13 [History] Folic Acid/Multivit-Min/Lutein [Multi-Vitamin Gummies] 1 tab PO DAILY 10/30/13 [ History] Hydrocodone/Acetaminophen [Hydrocodon-Acetaminophn 10-325] 1 - 2 tab PO Q4H PRN 10/30/13 [History] Iron 1 tab PO DAILY 10/30/13 [History] Pantoprazole [ProTONIX] 40 mg PO DAILY 10/30/13 [History] Pregabalin [Lyrica] 150 mg PO TID 10/30/13 [History] Promethazine [Phenergan] 25 mg PO Q4H PRN 10/30/13 [History] SUMAtriptan Succinate [Imitrex] 1 tab PO ASDIRECTED PRN 10/30/13 [History] Albuterol/Ipratropium [DuoNeb 3.0-0.5 MG/3 ML] 3 ml INH Q4H PRN 08/21/17 [ History] Methadone 10 mg PO DAILY 08/22/17 [History] Patient Handouts: Steps to Quit Smoking Referrals: PCP,None [Primary Care Provider] - - Discharge Summary/Plan Comment DC Time >30 min.: Yes (40) - General Info Date of Service: 08/22/17 Admission Dx/Problem (Free Text: Admission Diagnosis/Problem Admission Diagnosis/Problem Pneumonia Functional Status: Reports: Tolerating Diet, Ambulating, Urinating - Review of Systems General: Reports: Fever (subjective ), Weakness, Fatigue, Malaise, Chills, Other (Pain, weight loss) HEENT: Reports: No Symptoms Pulmonary: Reports: Shortness of Breath, Pleuritic Chest Pain, Cough, Sputum ( green), Wheezing Cardiovascular: Reports: Chest Pain (with coughing ), Dyspnea on Exertion, Lightheadedness. Denies: Palpitations, Edema Gastrointestinal: Reports: Abdominal Pain, Decreased Appetite, Flatus, Nausea, Vomiting. Denies: Constipation, Diarrhea, Difficulty Swallowing Genitourinary: Reports: No Symptoms Musculoskeletal: Reports: Back Pain, Joint Pain Skin: Reports: No Symptoms. Denies: Cyanosis, Pallor Neurological: Reports: Weakness. Denies: Confusion, Headache, Difficulty Walking, Gait Disturbance Psychiatric: Denies: Confusion, Depression, Anxiety - Patient Data Vitals - Most Recent: Last Vital Signs Temp 98.1 F 08/22/17 08:08 Pulse 74 08/22/17 08:08 Resp 14 08/22/17 08:08 BP 96/63 08/22/17 08:08 Pulse Ox 97 08/22/17 08:08 Weight - Most Recent: 109 lb 6.4 oz I&O - Last 24 hours: Intake & Output 08/21/17 08/22/17 08/22/17 22:59 06:59 14:59 Intake Total 485 180 Output Total 200 Balance 285 180 Lab Results - Last 24 hrs: Laboratory Results - last 24 hr 08/21/17 08/21/17 08/21/17 Range/Units 19:40 19:40 19:40 WBC 8.44 (3.98-10.04) K/mm3 RBC 4.18 (3.98-5.22) M/mm3 Hgb 11.4 (11.2-15.7) gm/L Hct 35.1 (34.1-44.9) % MCV 84.0 (79.4-94.8) fl MCH 27.3 (25.6-32.2) pg MCHC 32.5 (32.2-35.5) g/dl RDW Std Deviation 45.2 (36.4-46.3) fL Plt Count 271 (182-369) K/mm3 MPV 9.2 L (9.4-12.3) fl Neut % (Auto) (34.0-71.1) % Lymph % (Auto) (19.3-51.7) % [place] % (Auto) (4.7-12.5) % Eos % (Auto) (0.7-5.8) Baso % (Auto) (0.1-1.2) % Neut # (Auto) (1.56-6.13) K/mm3 Lymph # (Auto) (1.18-3.74) K/mm3 [place] # (Auto) (0.24-0.36) K/mm3 Eos # (Auto) (0.04-0.36) K/mm3 Baso # (Auto) (0.01-0.08) K/mm3 Neutrophils % (Manual) 79 H (40-60) % Band Neutrophils % 0 (0-10) % Lymphocytes % (Manual) 14 L (20-40) % Atypical Lymphs % 0 % Monocytes % (Manual) 7 (2-10) % Eosinophils % (Manual) 0 L (0.7-5.8) % Basophils % (Manual) 0 L (0.1-1.2) Platelet Estimate Adequate Plt Morphology Comment Normal Hypochromasia 1+ slight Poikilocytosis 1+ slight RBC Morph Comment Not Reportable D-Dimer, Quantitative (0.19-0.50) mg/L Sodium 137 (136-145) mEq/L Potassium 3.8 (3.5-5.1) mEq/L Chloride 102 (98-107) mEq/L Carbon Dioxide 24 (21-32) mEq/L Anion Gap 14.8 (5-15) BUN 10 (7-18) mg/dL Creatinine 0.6 (0.55-1.02) mg/dL Est Cr Clr Drug Dosing 82.80 mL/min Estimated GFR (MDRD) > 60 (>60) mL/min BUN/Creatinine Ratio 16.7 (14-18) Glucose 84 (74-106) mg/dL Lactic Acid (0.4-2.0) mmol/L Calcium 8.3 L (8.5-10.1) mg/dL Magnesium (1.8-2.4) mg/dl Total Bilirubin 0.6 (0.2-1.0) mg/dL AST 17 (15-37) U/L ALT 18 (14-59) U/L Alkaline Phosphatase 118 H (46-116) U/L Troponin I < 0.017 (0.00-0.056) ng/mL C-Reactive Protein 9.5 H* (<1.0) mg/dL NT-Pro-B Natriuret Pep 137 H (0-125) pg/mL Total Protein 6.2 L (6.4-8.2) g/dl Albumin 2.6 L (3.4-5.0) g/dl Globulin 3.6 gm/dL Albumin/Globulin Ratio 0.7 L (1-2) Urine Color (Yellow) Urine Appearance (Clear) Urine pH (5.0-8.0) Ur Specific [place] (1.005-1.030) Urine Protein (Negative) Urine Glucose (UA) (Negative) Urine Ketones (Negative) Urine Occult Blood (Negative) Urine Nitrite (Negative) Urine Bilirubin (Negative) Urine Urobilinogen (0.2-1.0) Ur Leukocyte Esterase (Negative) Urine RBC (0-5) /hpf Urine WBC (0-5) /hpf Ur Epithelial Cells (0-5) /hpf Urine Bacteria (FEW) /hpf Urine Mucus (FEW) /hpf Mycoplasma pneumon IgM (NEGATIVE) 08/21/17 08/21/17 08/21/17 Range/Units 19:40 19:40 19:40 WBC (3.98-10.04) K/mm3 RBC (3.98-5.22) M/mm3 Hgb (11.2-15.7) gm/L Hct (34.1-44.9) % MCV (79.4-94.8) fl MCH (25.6-32.2) pg MCHC (32.2-35.5) g/dl RDW Std Deviation (36.4-46.3) fL Plt Count (182-369) K/mm3 MPV (9.4-12.3) fl Neut % (Auto) (34.0-71.1) % Lymph % (Auto) (19.3-51.7) % [place] % (Auto) (4.7-12.5) % Eos % (Auto) (0.7-5.8) Baso % (Auto) (0.1-1.2) % Neut # (Auto) (1.56-6.13) K/mm3 Lymph # (Auto) (1.18-3.74) K/mm3 [place] # (Auto) (0.24-0.36) K/mm3 Eos # (Auto) (0.04-0.36) K/mm3 Baso # (Auto) (0.01-0.08) K/mm3 Neutrophils % (Manual) (40-60) % Band Neutrophils % (0-10) % Lymphocytes % (Manual) (20-40) % Atypical Lymphs % % Monocytes % (Manual) (2-10) % Eosinophils % (Manual) (0.7-5.8) % Basophils % (Manual) (0.1-1.2) Platelet Estimate Plt Morphology Comment Hypochromasia Poikilocytosis RBC Morph Comment D-Dimer, Quantitative (0.19-0.50) mg/L Sodium (136-145) mEq/L Potassium (3.5-5.1) mEq/L Chloride (98-107) mEq/L Carbon Dioxide (21-32) mEq/L Anion Gap (5-15) BUN (7-18) mg/dL Creatinine (0.55-1.02) mg/dL Est Cr Clr Drug Dosing mL/min Estimated GFR (MDRD) (>60) mL/min BUN/Creatinine Ratio (14-18) Glucose (74-106) mg/dL Lactic Acid 0.9 (0.4-2.0) mmol/L Calcium (8.5-10.1) mg/dL Magnesium 2.0 (1.8-2.4) mg/dl Total Bilirubin (0.2-1.0) mg/dL AST (15-37) U/L ALT (14-59) U/L Alkaline Phosphatase (46-116) U/L Troponin I (0.00-0.056) ng/mL C-Reactive Protein (<1.0) mg/dL NT-Pro-B Natriuret Pep (0-125) pg/mL Total Protein (6.4-8.2) g/dl Albumin (3.4-5.0) g/dl Globulin gm/dL Albumin/Globulin Ratio (1-2) Urine Color (Yellow) Urine Appearance (Clear) Urine pH (5.0-8.0) Ur Specific [place] (1.005-1.030) Urine Protein (Negative) Urine Glucose (UA) (Negative) Urine Ketones (Negative) Urine Occult Blood (Negative) Urine Nitrite (Negative) Urine Bilirubin (Negative) Urine Urobilinogen (0.2-1.0) Ur Leukocyte Esterase (Negative) Urine RBC (0-5) /hpf Urine WBC (0-5) /hpf Ur Epithelial Cells (0-5) /hpf Urine Bacteria (FEW) /hpf Urine Mucus (FEW) /hpf Mycoplasma pneumon IgM Negative (NEGATIVE) 08/21/17 08/21/17 08/22/17 Range/Units 19:40 21:20 05:47 WBC 5.54 (3.98-10.04) K/mm3 RBC 3.83 L (3.98-5.22) M/mm3 Hgb 10.3 L (11.2-15.7) gm/L Hct 32.9 L (34.1-44.9) % MCV 85.9 (79.4-94.8) fl MCH 26.9 (25.6-32.2) pg MCHC 31.3 L (32.2-35.5) g/dl RDW Std Deviation 46.9 H (36.4-46.3) fL Plt Count 245 (182-369) K/mm3 MPV 9.7 (9.4-12.3) fl Neut % (Auto) 66.1 (34.0-71.1) % Lymph % (Auto) 21.1 (19.3-51.7) % [place] % (Auto) 11.7 (4.7-12.5) % Eos % (Auto) 0.7 (0.7-5.8) Baso % (Auto) 0.2 (0.1-1.2) % Neut # (Auto) 3.66 (1.56-6.13) K/mm3 Lymph # (Auto) 1.17 L (1.18-3.74) K/mm3 [place] # (Auto) 0.65 H (0.24-0.36) K/mm3 Eos # (Auto) 0.04 (0.04-0.36) K/mm3 Baso # (Auto) 0.01 (0.01-0.08) K/mm3 Neutrophils % (Manual) (40-60) % Band Neutrophils % (0-10) % Lymphocytes % (Manual) (20-40) % Atypical Lymphs % % Monocytes % (Manual) (2-10) % Eosinophils % (Manual) (0.7-5.8) % Basophils % (Manual) (0.1-1.2) Platelet Estimate Plt Morphology Comment Hypochromasia Poikilocytosis RBC Morph Comment D-Dimer, Quantitative 0.43 (0.19-0.50) mg/L Sodium (136-145) mEq/L Potassium (3.5-5.1) mEq/L Chloride (98-107) mEq/L Carbon Dioxide (21-32) mEq/L Anion Gap (5-15) BUN (7-18) mg/dL Creatinine (0.55-1.02) mg/dL Est Cr Clr Drug Dosing mL/min Estimated GFR (MDRD) (>60) mL/min BUN/Creatinine Ratio (14-18) Glucose (74-106) mg/dL Lactic Acid (0.4-2.0) mmol/L Calcium (8.5-10.1) mg/dL Magnesium (1.8-2.4) mg/dl Total Bilirubin (0.2-1.0) mg/dL AST (15-37) U/L ALT (14-59) U/L Alkaline Phosphatase (46-116) U/L Troponin I (0.00-0.056) ng/mL C-Reactive Protein (<1.0) mg/dL NT-Pro-B Natriuret Pep (0-125) pg/mL Total Protein (6.4-8.2) g/dl Albumin (3.4-5.0) g/dl Globulin gm/dL Albumin/Globulin Ratio (1-2) Urine Color Yellow (Yellow) Urine Appearance Clear (Clear) Urine pH 7.0 (5.0-8.0) Ur Specific [place] 1.015 (1.005-1.030) Urine Protein Negative (Negative) Urine Glucose (UA) 2+ H (Negative) Urine Ketones Trace H (Negative) Urine Occult Blood Negative (Negative) Urine Nitrite Negative (Negative) Urine Bilirubin Negative (Negative) Urine Urobilinogen 1.0 (0.2-1.0) Ur Leukocyte Esterase Negative (Negative) Urine RBC 0-5 (0-5) /hpf Urine WBC 0-5 (0-5) /hpf Ur Epithelial Cells 0-5 (0-5) /hpf Urine Bacteria Rare (FEW) /hpf Urine Mucus Not seen (FEW) /hpf Mycoplasma pneumon IgM (NEGATIVE) 08/22/17 Range/Units 05:47 WBC (3.98-10.04) K/mm3 RBC (3.98-5.22) M/mm3 Hgb (11.2-15.7) gm/L Hct (34.1-44.9) % MCV (79.4-94.8) fl MCH (25.6-32.2) pg MCHC (32.2-35.5) g/dl RDW Std Deviation (36.4-46.3) fL Plt Count (182-369) K/mm3 MPV (9.4-12.3) fl Neut % (Auto) (34.0-71.1) % Lymph % (Auto) (19.3-51.7) % [place] % (Auto) (4.7-12.5) % Eos % (Auto) (0.7-5.8) Baso % (Auto) (0.1-1.2) % Neut # (Auto) (1.56-6.13) K/mm3 Lymph # (Auto) (1.18-3.74) K/mm3 [place] # (Auto) (0.24-0.36) K/mm3 Eos # (Auto) (0.04-0.36) K/mm3 Baso # (Auto) (0.01-0.08) K/mm3 Neutrophils % (Manual) (40-60) % Band Neutrophils % (0-10) % Lymphocytes % (Manual) (20-40) % Atypical Lymphs % % Monocytes % (Manual) (2-10) % Eosinophils % (Manual) (0.7-5.8) % Basophils % (Manual) (0.1-1.2) Platelet Estimate Plt Morphology Comment Hypochromasia Poikilocytosis RBC Morph Comment D-Dimer, Quantitative (0.19-0.50) mg/L Sodium 137 (136-145) mEq/L Potassium 4.6 (3.5-5.1) mEq/L Chloride 109 H (98-107) mEq/L Carbon Dioxide 25 (21-32) mEq/L Anion Gap 7.6 (5-15) BUN 8 (7-18) mg/dL Creatinine 0.5 L (0.55-1.02) mg/dL Est Cr Clr Drug Dosing 94.80 mL/min Estimated GFR (MDRD) > 60 (>60) mL/min BUN/Creatinine Ratio 16.0 (14-18) Glucose 96 (74-106) mg/dL Lactic Acid (0.4-2.0) mmol/L Calcium 7.8 L (8.5-10.1) mg/dL Magnesium 2.1 (1.8-2.4) mg/dl Total Bilirubin (0.2-1.0) mg/dL AST (15-37) U/L ALT (14-59) U/L Alkaline Phosphatase (46-116) U/L Troponin I (0.00-0.056) ng/mL C-Reactive Protein 7.3 H* (<1.0) mg/dL NT-Pro-B Natriuret Pep (0-125) pg/mL Total Protein (6.4-8.2) g/dl Albumin (3.4-5.0) g/dl Globulin gm/dL Albumin/Globulin Ratio (1-2) Urine Color (Yellow) Urine Appearance (Clear) Urine pH (5.0-8.0) Ur Specific [place] (1.005-1.030) Urine Protein (Negative) Urine Glucose (UA) (Negative) Urine Ketones (Negative) Urine Occult Blood (Negative) Urine Nitrite (Negative) Urine Bilirubin (Negative) Urine Urobilinogen (0.2-1.0) Ur Leukocyte Esterase (Negative) Urine RBC (0-5) /hpf Urine WBC (0-5) /hpf Ur Epithelial Cells (0-5) /hpf Urine Bacteria (FEW) /hpf Urine Mucus (FEW) /hpf Mycoplasma pneumon IgM (NEGATIVE) GABRIEL Results - Last 24 hrs: Microbiology 08/22/17 01:55 Gram Stain - Final Sputum - Expectorated 08/21/17 19:22 Influenza Type A Antigen Screen - Final Nasal Aspirate, Unspecified NEGATIVE INFLUENZA A VIRUS AG Influenza Type B Antigen Screen - Final NEGATIVE INFLUENZA B VIRUS AG Med Orders - Current: Current Medications Hydrocodone Bitart/Acetaminophen ([place] 325-10 Mg) 1 tab PO Q4H [facility] Last Admin: 08/22/17 11:21 Dose: 1 tab Albuterol/Ipratropium (Duoneb 3.0-0.5 Mg/3 Ml) 3 ml INH Q4H PRN PRN Reason: Dyspnea Benzonatate (Tessalon Perles) 200 mg PO BID [facility] Last Admin: 08/22/17 08:10 Dose: 200 mg Bisacodyl (Dulcolax) 5 mg PO DAILY PRN PRN Reason: Constipation Docusate Sodium (Colace) 100 mg PO BID [facility] Last Admin: 08/22/17 08:10 Dose: 100 mg Guaifenesin/Phenylephrine HCl (Robitussin Dm) 10 ml PO Q4H PRN PRN Reason: Cough Hydralazine HCl (Apresoline) 20 mg IVPUSH Q4H PRN PRN Reason: Hypertension Hydromorphone HCl (Dilaudid) 4 mg PO Q4H PRN PRN Reason: Pain Last Admin: 08/22/17 08:21 Dose: 4 mg Promethazine HCl 12.5 mg/ (Sodium Chloride) 50.5 mls @ 100 mls/hr IV Q6H PRN PRN Reason: Nausea/Vomiting Sodium Chloride (Normal Saline) 1,000 mls @ 75 mls/hr IV ASDIRECTED [facility] Last Admin: 08/22/17 10:35 Dose: 75 mls/hr Levofloxacin/Dextrose 750 mg/ (Premix) 150 mls @ 100 mls/hr IV Q24H [facility] Lorazepam (Ativan) 1 mg IV Q6H PRN PRN Reason: Anxiety Lorazepam (Ativan) 2 mg IVPUSH Q4H PRN PRN Reason: Seizures Magnesium Hydroxide (Milk Of Magnesia) 30 ml PO Q12H PRN PRN Reason: Constipation Magnesium Sulfate (Pharmacy To Dose - Magnesium Replacement) 1 dose .XX ASDIRECTED [facility] Methadone HCl (Methadone) 10 mg PO DAILY [facility] Metoprolol Tartrate (Lopressor) 5 mg IVPUSH Q4H PRN PRN Reason: Tachycardia Ondansetron HCl (Zofran) 4 mg IV Q6H PRN PRN Reason: Nausea/Vomiting Pantoprazole Sodium (Protonix) 40 mg PO ACBREAKFAST@0700 [facility] Last Admin: 08/22/17 06:17 Dose: 40 mg Polyethylene Glycol (Miralax) 17 gm PO DAILY PRN PRN Reason: Constipation Potassium Chloride (Pharmacy To Dose - Potassium Replacement) 1 dose .XX ASDIRECTED [facility] Pregabalin (Lyrica) 150 mg PO BID [facility] Last Admin: 08/22/17 08:10 Dose: 150 mg Promethazine HCl (Phenergan) 25 mg PO Q4H PRN PRN Reason: Nausea Saccharomyces Boulardii (Florastor) 250 mg PO DAILY [facility] Last Admin: 08/22/17 08:10 Dose: 250 mg Senna/Docusate Sodium (Senna Plus) 1 tab PO BID PRN PRN Reason: Constipation Sodium Chloride (Saline Flush) 10 ml FLUSH ONETIME PRN PRN Reason: IV FLUSH Last Admin: 08/22/17 09:53 Dose: 10 ml Vit A/Vit C/Vit E/Selen/Cu/Zn/Lutei (Icaps Mv) 1 tab PO DAILY [facility] Last Admin: 08/22/17 08:10 Dose: 1 tab Discontinued Medications Acetaminophen (Tylenol) 650 mg PO NOW ONE Stop: 08/21/17 21:26 Last Admin: 08/21/17 21:30 Dose: 650 mg Albuterol/Ipratropium (Duoneb 3.0-0.5 Mg/3 Ml) 3 ml NEB ONETIME ONE Stop: 08/21/17 19:46 Last Admin: 08/21/17 19:59 Dose: 3 ml Amitriptyline HCl (Elavil) 300 mg PO DAILY [facility] Last Admin: 08/22/17 08:11 Dose: 25 mg Amitriptyline HCl (Elavil) 25 mg PO BID [facility] Cyanocobalamin (Vitamin B12) 1,000,000 mcg SUBCUT ASDIRECTED [facility] Diphtheria/Tetanus/Acell Pertussis (Adacel) 0.5 ml IM .ONCE ONE Stop: 08/21/17 22:26 Hydromorphone HCl (Dilaudid) 0.5 mg IVPUSH ONETIME ONE Stop: 08/21/17 19:35 Last Admin: 08/21/17 21:26 Dose: Not Given Hydromorphone HCl (Dilaudid) 1 mg IVPUSH ONETIME ONE Stop: 08/21/17 19:36 Last Admin: 08/21/17 19:49 Dose: 1 mg Hydromorphone HCl (Dilaudid) 1 mg IVPUSH ONETIME ONE Stop: 08/21/17 20:41 Last Admin: 08/21/17 20:55 Dose: 1 mg Hydromorphone HCl (Dilaudid) 0.5 mg IVPUSH ONETIME ONE Stop: 08/22/17 05:34 Last Admin: 08/22/17 05:40 Dose: 0.5 mg Hydromorphone HCl (Dilaudid) 2 mg IVPUSH ONETIME ONE Stop: 08/22/17 11:25 Hydromorphone HCl (Dilaudid) 1 mg IVPUSH ONETIME ONE Stop: 08/22/17 11:25 Last Admin: 08/22/17 11:44 Dose: 1 mg Dextrose/Sodium Chloride (Dextrose 5%-Normal Saline) 1,000 mls @ 500 mls/hr IV ASDIRECTED [facility] Last Admin: 08/21/17 19:44 Dose: 500 mls/hr Levofloxacin/Dextrose 750 mg/ (Premix) 150 mls @ 100 mls/hr IV ONETIME ONE Stop: 08/21/17 21:41 Last Admin: 08/21/17 20:57 Dose: 100 mls/hr Promethazine HCl 25 mg/ Sodium (Chloride) 51 mls @ 100 mls/hr IV ONETIME ONE Stop: 08/21/17 21:10 Last Admin: 08/21/17 20:56 Dose: 100 mls/hr Sodium Chloride (Normal Saline) 500 mls @ 999 mls/hr IV ONETIME ONE Stop: 08/21/17 23:40 Last Admin: 08/21/17 23:57 Dose: Not Given Sodium Chloride (Normal Saline) 500 mls @ 999 mls/hr IV ONETIME ONE Stop: 08/22/17 07:30 Last Admin: 08/22/17 08:11 Dose: Not Given Sodium Chloride (Normal Saline) 100 mls @ 75 mls/hr IV ASDIRECTED [facility]SEFA Last Admin: 08/22/17 09:53 Dose: 75 mls/hr Ibuprofen (Motrin) 600 mg PO ONETIME ONE Stop: 08/21/17 19:46 Last Admin: 08/21/17 19:52 Dose: Not Given Iopamidol (Isovue-370 (76%)) 100 ml IVPUSH ONETIME ONE Stop: 08/22/17 08:33 Last Admin: 08/22/17 09:53 Dose: 100 ml Non-Formulary Medication (Iron [Iron]) 1 tab PO DAILY JOSEFA Non-Formulary Medication (Sumatriptan Succinate [Imitrex]) 1 tab PO ASDIRECTED PRN PRN Reason: Headache Ondansetron HCl (Zofran) 4 mg IVPUSH ONETIME ONE Stop: 08/21/17 19:31 Last Admin: 08/21/17 19:47 Dose: 4 mg Pneumococcal Polyvalent Vaccine (Pneumovax 23) 0.5 ml IM .ONCE ONE Stop: 08/21/17 22:26 Potassium Chloride (Klor-Con M20) 40 meq PO Q4H [facility] Stop: 08/22/17 03:31 Last Admin: 08/22/17 03:01 Dose: 40 meq - Exam Quality Assessment: Denies: Supplemental Oxygen General: Reports: Alert, Oriented, Cooperative, Mild Distress (states she is in pain ), Other (Strong cigarette odor ) HEENT: Reports: Pupils Equal, Pupils Reactive, EOMI Neck: Reports: Supple. Denies: Lymphadenopathy Lungs: Reports: Normal Respiratory Effort (posteriorly ), Decreased Breath Sounds, Rhonchi (anteriorly ) Cardiovascular: Reports: Regular Rate, Regular Rhythm, No Murmurs GI/Abdominal Exam: Normal Bowel Sounds, Soft, Non-Tender, No Distention (Female) Exam: Deferred Rectal (Female) Exam: Deferred Back Exam: Reports: Normal Inspection, Decreased Range of Motion Extremities: Normal Inspection, Normal Range of Motion, No Pedal Edema Skin: Reports: Warm, Dry, Intact Neurological: Reports: No New Focal Deficit, Normal Gait, Normal Speech, Strength Equal Bilateral, Cranial Nerves Intact (grossly) Psy/Mental Status: Reports: Alert, Normal Affect, Normal Mood
[2017-08-22 13:20] VITALS: BP 125/74
[2017-08-22] MEDS ORDERED: Levofloxacin/Dextrose 5%-Water 750 MG in Premix Bag 1 BAG IV SCH (20:00)
[2017-08-23] MEDS ORDERED: Methadone 10 MG Tab PO SCH (09:00)
== END 2017-08-22 12:40 | DRG 190 ==
LOC: JD.ED 18:50 → JD.MS 21:46
PROVIDERS: ADMIT Internal Medicine; ATTEND Internal Medicine
DX: J44.0 Chronic obstructive pulmonary disease with (acute) lower respiratory infection (principal); J18.1 Lobar pneumonia, unspecified organism; F11.20 Opioid dependence, uncomplicated; F17.200 Nicotine dependence, unspecified, uncomplicated; F41.9 Anxiety disorder, unspecified; D64.9 Anemia, unspecified; F32.9 Major depressive disorder, single episode, unspecified; G89.4 Chronic pain syndrome; H54.7 Unspecified visual loss; M19.90 Unspecified osteoarthritis, unspecified site; M54.9 Dorsalgia, unspecified; K21.9 Gastro-esophageal reflux disease without esophagitis; J20.9 Acute bronchitis, unspecified; G43.909 Migraine, unspecified, not intractable, without status migrainosus; G62.9 Polyneuropathy, unspecified; D50.9 Iron deficiency anemia, unspecified; R63.4 Abnormal weight loss; R05 Cough; R06.02 Shortness of breath; M79.1 Myalgia; R51 Headache; R50.9 Fever, unspecified; R06.2 Wheezing; R53.81 Other malaise; R11.2 Nausea with vomiting, unspecified; R53.1 Weakness; R07.81 Pleurodynia; R53.83 Other fatigue; R06.00 Dyspnea, unspecified; R42 Dizziness and giddiness; R09.3 Abnormal sputum; Z68.21 Body mass index [BMI] 21.0-21.9, adult; Z66 Do not resuscitate; Z90.49 Acquired absence of other specified parts of digestive tract; Z98.84 Bariatric surgery status; Z88.6 Allergy status to analgesic agent; Z87.01 Personal history of pneumonia (recurrent); Z88.8 Allergy status to other drugs, medicaments and biological substances; Z79.899 Other long term (current) drug therapy; Z90.710 Acquired absence of both cervix and uterus
CPT/HCPCS: 36415; 71045; 80053; 81001; 83605; 83735; 83880; 84484; 85007; 85027; 85379; 86140; 86738; 87040 ×2; 87804 ×2; 93005; 94640; 96361; 96365; 96368; 96375; 96376; 99285; A9270; J1170 ×2; J1956; J2405; J2550; J7042; J7050; 71275; 71275-26; 80048; 80306; 85025; 87070; 87205; 87486; 87581; 87633; 87798; 87899; 93010; J7030; J7040; Q9967

== ENCOUNTER 2018-05-01 13:56 | Emergency (ER) | payer MEDICARE, MEDICAID ==
[2018-05-01 14:09] VITALS: BP 119/81
[2018-05-01] MEDS ORDERED: Ondansetron 4 MG/2 ML SDV IVPUSH ONE ×2 (14:17→16:28)
[2018-05-01] MEDS ORDERED: Sodium Chloride 0.9% 10 ML Syringe FLUSH PRN (14:17)
[2018-05-01] MEDS ORDERED: Sodium Chloride 0.9% 1,000 ML IV STA (14:17)
[2018-05-01] MEDS ORDERED: HYDROmorphone 1 MG/ML Syringe IVPUSH ONE ×3 (14:18→17:06)
--- NOTE | 2018-05-01 14:23 | EDM.PDOC ---
ED HPI GENERAL MEDICAL PROBLEM - General Chief Complaint: Abdominal Pain Stated Complaint: NAUSEA/VOMITING Time Seen by Provider: 05/01/18 14:07 Source of Information: Reports: Patient History Limitations: Reports: No Limitations - History of Present Illness INITIAL COMMENTS - FREE TEXT/NARRATIVE: The patient presents with abdominal pain, nausea, and vomiting. This started this morning at 5:30am. She has no diarrhea. She has a history of gastric bypass surgery. She has no fever but she did have chills, cough and congestion for a few days before these symptoms. She does not have a gallbladder but she still has the appendix. She has no dysuria or hematuria. She has pain to her low back. Onset: Gradual Duration: Hour(s): Location: Reports: Abdomen, Back Quality: Reports: Sharp Severity: Moderate Improves with: Reports: None Worsens with: Reports: None Associated Symptoms: Reports: Cough, Fever/Chills, Nausea/Vomiting. Denies: Headaches, Shortness of Breath lower back/lower abdomen Pain Score (Numeric/FACES): 8 - Related Data Allergies Allergy/AdvReac Type Severity Reaction Status Date / Time codeine Allergy Hives Verified 05/01/18 14:09 ketorolac [From Toradol] Allergy Blisters Verified 05/01/18 14:09 lorazepam [From Ativan] Allergy Excitabilit Verified 05/01/18 14:09 y morphine Allergy Itching Verified 05/01/18 14:09 nalbuphine HCl [From Nubain] Allergy Hives Verified 05/01/18 14:09 chlorpromazine HCl AdvReac Anxiety Verified 05/01/18 14:09 [From Thorazine] haloperidol [From Haldol] AdvReac Anxiety Verified 05/01/18 14:09 haloperidol lactate AdvReac Anxiety Verified 05/01/18 14:09 [From Haldol] Home Meds: Home Meds Cyanocobalamin (Vitamin B-12) [Cyanocobalamin Injection] 1,000 mg INJECT ASDIRECTED 10/30/13 [History] Folic Acid/Multivit-Min/Lutein [Multi-Vitamin Gummies] 1 tab PO DAILY 10/30/13 [ History] Hydrocodone/Acetaminophen [Hydrocodon-Acetaminophn 10-325] 1 - 2 tab PO Q4H PRN 10/30/13 [History] Iron 1 tab PO DAILY 10/30/13 [History] Pantoprazole [ProTONIX] 40 mg PO DAILY 10/30/13 [History] Pregabalin [Lyrica] 150 mg PO TID 10/30/13 [History] SUMAtriptan Succinate [Imitrex] 1 tab PO ASDIRECTED PRN 10/30/13 [History] Albuterol/Ipratropium [DuoNeb 3.0-0.5 MG/3 ML] 3 ml INH Q4H PRN 08/21/17 [ History] Methadone 10 mg PO DAILY 08/22/17 [History] Ondansetron [Zofran ODT] 4 mg PO Q8HR PRN #10 tab.dis 10/11/17 [Rx] Azithromycin [Zithromax] 250 mg PO DAILY #6 tab 05/01/18 [Rx] Hydrocodone/Acetaminophen [Hydrocodon-Acetaminophen 5-325] 1 - 2 each PO Q6HR PRN #20 tablet 05/01/18 [Rx] Ondansetron [Zofran ODT] 4 mg PO Q6H PRN #20 tab.dis 05/01/18 [Rx] Past Medical History HEENT History: Reports: Impaired Vision, Other (See Below) Other HEENT History: wears glasses Respiratory History: Reports: Bronchitis, Recurrent, COPD, Pneumonia, Recurrent Other Respiratory History: Patient has gone septic from pneumonia x2 Gastrointestinal History: Reports: Bowel Obstruction Genitourinary History: Reports: None 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: Musculoskeletal History: Reports: Arthritis, Back Pain, Chronic, Fracture Neurological History: Reports: Migraines Psychiatric History: Reports: Anxiety Hematologic History: Reports: Anemia, Blood Transfusion(s), Iron Deficiency - Infectious Disease History Infectious Disease History: Reports: Chicken Pox, MRSA - Past Surgical History HEENT Surgical History: Reports: None Respiratory Surgical History: Reports: None GI Surgical History: Reports: Bariatric Procedure, Cholecystectomy, Colonoscopy , EGD Other GI Surgeries/Procedures: ulcers Female Surgical History: Reports: Hysterectomy Musculoskeletal Surgical History: Reports: None Dermatological Surgical History: Reports: None Social & Family History - Family History Family Medical History: Noncontributory - Tobacco Use Smoking Status *Q: Current Every Day Smoker Years of Tobacco use: 40 Packs/Tins Daily: 0.5 - Caffeine Use Caffeine Use: Reports: Soda - Recreational Drug Use Recreational Drug Use: No - Living Situation & Occupation Living situation: Reports: Single Occupation: Disabled ED ROS GENERAL - Review of Systems Review Of Systems: See Below Constitutional: Reports: Chills. Denies: Fever HEENT: Reports: Other (Congestion and runny nose) Respiratory: Reports: Cough. Denies: Shortness of Breath Cardiovascular: Reports: No Symptoms Endocrine: Reports: No Symptoms GI/Abdominal: Reports: Abdominal Pain, Nausea, Vomiting. Denies: Diarrhea : Reports: No Symptoms Musculoskeletal: Reports: Back Pain (right low back) ED EXAM, GI/ABD - Physical Exam Exam: See Below Exam Limited By: No Limitations General Appearance: Alert, No Apparent Distress Ears: Normal External Exam Nose: Normal Inspection Head: Atraumatic, Normocephalic Neck: Normal Inspection Respiratory/Chest: No Respiratory Distress, Lungs Clear, Normal Breath Sounds Cardiovascular: Regular Rate, Rhythm, No Edema, No Murmur GI/Abdominal Exam: Soft, No Organomegaly, No Mass, Tender (Moderate tenderness to the RLQ) Back Exam: Other (Mild pain upon palpation to the right lower back) Extremities: Normal Inspection Neurological: Alert, Oriented, No Motor/Sensory Deficits Course - Vital Signs Last Recorded V/S: Last Vital Signs Temp 97 F 05/01/18 14:00 Pulse 88 05/01/18 14:00 Resp 18 05/01/18 14:00 BP 119/81 05/01/18 14:00 Pulse Ox 99 05/01/18 14:00 - Orders/Labs/Meds Orders: Active Orders 24 hr Category Date Time Status Peripheral IV Care [RC] . DIRECTED Care 05/01/18 14:17 Active UA W/MICROSCOPIC [URIN] Stat Lab 05/01/18 14:17 Ordered Sodium Chloride 0.9% [Saline Flush] Med 05/01/18 14:17 Active 10 ml FLUSH ASDIRECTED PRN Sodium Chloride 0.9% [Saline Flush] Med 05/01/18 14:30 Active 10 ml FLUSH ONETIME PRN ED Antiemetic Medication Reflex [OM.PC] Stat Oth 05/01/18 14:17 Ordered Peripheral IV Insertion Adult [OM.PC] Stat Oth 05/01/18 14:17 Ordered Medication Orders Sodium Chloride (Saline Flush) 10 ml FLUSH ASDIRECTED PRN PRN Reason: Keep Vein Open Last Admin: 05/01/18 15:14 Dose: 10 ml Sodium Chloride (Saline Flush) 10 ml FLUSH ONETIME PRN PRN Reason: IV FLUSH Last Admin: 05/01/18 16:15 Dose: 10 ml Admin: 05/01/18 15:51 Dose: 10 ml Labs: Laboratory Tests 05/01/18 05/01/18 Range/Units 15:05 15:05 WBC 4.24 (3.98-10.04) K/mm3 RBC 5.17 (3.98-5.22) M/mm3 Hgb 12.8 (11.2-15.7) gm/L Hct 40.7 (34.1-44.9) % MCV 78.7 L (79.4-94.8) fl MCH 24.8 L (25.6-32.2) pg MCHC 31.4 L (32.2-35.5) g/dl RDW Std Deviation 46.1 (36.4-46.3) fL Plt Count 337 (182-369) K/mm3 MPV 9.9 (9.4-12.3) fl Neut % (Auto) 61.8 (34.0-71.1) % Lymph % (Auto) 27.1 (19.3-51.7) % [place] % (Auto) 9.4 (4.7-12.5) % Eos % (Auto) 1.2 (0.7-5.8) Baso % (Auto) 0.5 (0.1-1.2) % Neut # (Auto) 2.62 (1.56-6.13) K/mm3 Lymph # (Auto) 1.15 L (1.18-3.74) K/mm3 [place] # (Auto) 0.40 H (0.24-0.36) K/mm3 Eos # (Auto) 0.05 (0.04-0.36) K/mm3 Baso # (Auto) 0.02 (0.01-0.08) K/mm3 Sodium 140 (136-145) mEq/L Potassium 3.9 (3.5-5.1) mEq/L Chloride 103 (98-107) mEq/L Carbon Dioxide 26 (21-32) mEq/L Anion Gap 14.9 (5-15) BUN 11 (7-18) mg/dL Creatinine 0.8 (0.55-1.02) mg/dL Est Cr Clr Drug Dosing 62.10 mL/min Estimated GFR (MDRD) > 60 (>60) mL/min BUN/Creatinine Ratio 13.8 L (14-18) Glucose 83 (74-106) mg/dL Calcium 9.3 (8.5-10.1) mg/dL Total Bilirubin 0.3 (0.2-1.0) mg/dL AST 23 (15-37) U/L ALT 20 (14-59) U/L Alkaline Phosphatase 185 H (46-116) U/L Total Protein 7.9 (6.4-8.2) g/dl Albumin 3.4 (3.4-5.0) g/dl Globulin 4.5 gm/dL Albumin/Globulin Ratio 0.8 L (1-2) Lipase 69 L (73-393) U/L Meds: Medications Generic Name Dose Route Start Last Admin Trade Name Greg PRN Reason Stop Dose Admin Sodium Chloride 10 ml 05/01/18 14:17 05/01/18 15:14 Saline Flush FLUSH 10 ml ASDIRECTED PRN Administration Keep Vein Open Sodium Chloride 10 ml 05/01/18 14:30 05/01/18 16:15 Saline Flush FLUSH 10 ml ONETIME PRN Administration IV FLUSH Discontinued Medications Generic Name Dose Route Start Last Admin Trade Name Greg PRN Reason Stop Dose Admin Diatrizoate Meglum/Diatrizoate Sod 120 ml 05/01/18 14:30 05/01/18 16:15 Gastrografin 37% PO 05/01/18 14:31 120 ml ONETIME ONE Administration Hydromorphone HCl 0.5 mg 05/01/18 14:18 05/01/18 15:12 Dilaudid IVPUSH 05/01/18 14:19 0.5 mg ONETIME ONE Administration Hydromorphone HCl 0.5 mg 05/01/18 15:56 05/01/18 16:15 Dilaudid IVPUSH 05/01/18 15:57 0.5 mg ONETIME ONE Administration Sodium Chloride 1,000 mls @ 1,000 mls/hr 05/01/18 14:17 05/01/18 15:10 Normal Saline IV 05/01/18 15:16 1,000 mls/hr .BOLUS STA Administration Iopamidol 100 ml 05/01/18 14:30 05/01/18 16:15 Isovue-300 (61%) IVPUSH 05/01/18 14:31 100 ml ONETIME ONE Administration Ondansetron HCl 4 mg 05/01/18 14:17 05/01/18 15:11 Zofran IVPUSH 05/01/18 14:18 4 mg ONETIME ONE Administration Ondansetron HCl 4 mg 05/01/18 16:28 05/01/18 16:33 Zofran IVPUSH 05/01/18 16:29 4 mg ONETIME ONE Administration - Re-Assessments/Exams Free Text/Narrative Re-Assessment/Exam: 05/01/18 14:22 I ordered an IV NS 1L bolus, zofran 4mg IV, dilaudid 0.5mg IV, labs, UA and a CT of her abdomen and pelvis. 05/01/18 16:55 Her CBC looks good. Her alk phos was elevated at 13.8. Her lipase was a little low. Her CT shows scarring within the left base most likely residual from previous pneumonia. Mild intrahepatic biliary duct dilatation most likely residual from prior cholecystectomy. Mild increased stool throughout the colon. Increased fluid within nondilated small bowel loops raising the possibility of gastroenteritis. She had more pain so I ordered more dilaudid and some zofran for nausea. Departure - Departure Time of Disposition: 17:10 Disposition: Home, Self-Care 01 Condition: Good Clinical Impression: Gastroenteritis Pneumonia Qualifiers: Pneumonia type: due to unspecified organism Laterality: right Lung location: middle lobe of lung Qualified Code(s): J18.1 - Lobar pneumonia, unspecified organism Low back pain Qualifiers: Chronicity: chronic Back pain laterality: right Sciatica presence: without sciatica Qualified Code(s): M54.5 - Low back pain; G89.29 - Other chronic pain - Discharge Information *PRESCRIPTION DRUG MONITORING PROGRAM REVIEWED*: No *COPY OF PRESCRIPTION DRUG MONITORING REPORT IN PATIENT GWYN: No Prescriptions: Hydrocodone/Acetaminophen [Hydrocodon-Acetaminophen 5-325] 1 - 2 each PO Q6HR PRN #20 tablet PRN Reason: Pain Azithromycin [Zithromax] 250 mg PO DAILY #6 tab Ondansetron [Zofran ODT] 4 mg PO Q6H PRN #20 tab.dis PRN Reason: Nausea\vomiting Referrals: PCP,None [Ordering Only Provider] - Jm Vázquez PA-C [Physician Chaplain] - 1 Week Forms: ED Department Discharge Additional Instructions: Take your medication as prescribed. Please return if you are worse. Drink plenty of fluids. - My Orders Last 24 Hours: My Active Orders 05/01/18 14:17 Peripheral IV Care [RC] . DIRECTED UA W/MICROSCOPIC [URIN] Stat Sodium Chloride 0.9% [Saline Flush] 10 ml FLUSH ASDIRECTED PRN ED Antiemetic Medication Reflex [OM.PC] Stat Peripheral IV Insertion Adult [OM.PC] Stat 05/01/18 14:30 Sodium Chloride 0.9% [Saline Flush] 10 ml FLUSH ONETIME PRN - Assessment/Plan Last 24 Hours: My Active Orders 05/01/18 14:17 Peripheral IV Care [RC] . DIRECTED UA W/MICROSCOPIC [URIN] Stat Sodium Chloride 0.9% [Saline Flush] 10 ml FLUSH ASDIRECTED PRN ED Antiemetic Medication Reflex [OM.PC] Stat Peripheral IV Insertion Adult [OM.PC] Stat 05/01/18 14:30 Sodium Chloride 0.9% [Saline Flush] 10 ml FLUSH ONETIME PRN
[2018-05-01] MEDS ORDERED: Diatrizoate Meglumine/Diatrizoate Sodium 37% 120 ML Bottle PO ONE (14:30)
[2018-05-01] MEDS ORDERED: Iopamidol 612 MG/ML 100 ML Bottle IVPUSH ONE (14:30)
[2018-05-01] MEDS: Sodium Chloride 0.9% 10 ML Syringe FLUSH PRN ×2 (15:51→16:15)
--- NOTE | 2018-05-01 16:34 | CT ---
CT abdomen and pelvis Technique: Multiple axial sections were obtained from the top the liver inferiorly through the pubic symphysis. Intravenous contrast was utilized. No oral contrast was utilized. Comparison: Prior CT abdomen and pelvis exam of 05/14/17. Slight parenchymal density is noted within the left base most likely due to scarring from previous left lower lobe pneumonia. Liver shows no focal parenchymal abnormality. Slight intrahepatic biliary duct dilatation is seen which appears stable from prior exam most likely residual from previous cholecystectomy. Spleen appears within normal limits. Moderately large hiatal hernia is seen with evidence of previous gastric surgery. Adrenal glands show no nodule. Kidneys show contrast excretion into the ureters which show no dilatation. Kidneys show a small upper pole cyst measuring 6 mm. Pancreas shows no discrete abnormality. Aorta shows minimal atherosclerotic change without aneurysm. No retroperitoneal adenopathy or mesenteric abnormalities are seen. No pelvic mass or adenopathy is seen. Mild increased stool is seen throughout the colon. Fluid is noted throughout nondilated small bowel loops. Appendix not definitely visualized. Bone window settings were reviewed which appear within normal limits for the patient's age. Impression: 1. Scarring within the left base most likely residual from previous pneumonia. 2. Mild intrahepatic biliary duct dilatation most likely residual from prior cholecystectomy. 3. Mild increased stool throughout the colon. 4. Increased fluid within nondilated small bowel loops raising the possibility of gastroenteritis. Diagnostic code #3
== END 2018-05-01 17:20 | disposition home or self-care (01) ==
LOC: JD.ED 13:56
DX: K52.9 Noninfective gastroenteritis and colitis, unspecified (principal); J18.1 Lobar pneumonia, unspecified organism; M54.5 Low back pain; G89.29 Other chronic pain; F17.210 Nicotine dependence, cigarettes, uncomplicated; F41.9 Anxiety disorder, unspecified; J44.9 Chronic obstructive pulmonary disease, unspecified; D64.9 Anemia, unspecified; Z79.899 Other long term (current) drug therapy; Z88.5 Allergy status to narcotic agent; Z88.8 Allergy status to other drugs, medicaments and biological substances
CPT/HCPCS: 36415; 74177; 80053; 81001; 83690; 85025; 96361; 96374; 96375; 96376; 99284; J1170; J2405; J7040; Q9963; Q9967